=== PATIENT | female | born 1950 | race Caucasian/White ===

== ENCOUNTER → 2023-07-01 02:51 | Outpatient (CLI) | payer MEDICARE, SELFPAY ==
--- NOTE | 2023-07-01 | DI.RAD_ITS ---
Exam(s) XR KNEE RT 3V AP,LAT,JUAN JOSE EXAM: XR KNEE RT 3V AP,LAT,JUAN JOSE CLINICAL HISTORY: RT KNEE PAIN, M25.561. TECHNIQUE: 2D digital imaging was performed of the right knee. Three views obtained. AP, lateral an d PA tunnel views were obtained. COMPARISON: No exams were available for comparison FINDINGS: BONES: No acute fracture is present. No bony destructive lesion is seen. JOINTS: There is marked narrowing of the lateral femoral tibial joint. There are small osteophytes a t the posterior patella. No joint effusion is seen. SOFT TISSUE: Vascular calcification is present. IMPRESSION: 1. Marked arthrosis of the right knee particularly in the lateral femoral tibial joint. 2. Atherosclerotic calcification is present. DATA REPOSITORY: RADIATION DOSE DELIVERED:
== END ==
PROVIDERS: Visit Provider Family Medicine
DX: M25.561 Pain in right knee (principal); M17.11 Unilateral primary osteoarthritis, right knee
CPT/HCPCS: 73562

== ENCOUNTER 2023-07-04 15:03 | Emergency (ER) | payer MEDICARE, SELFPAY ==
[2023-07-04] VITALS (25 sets, daily range): BP systolic 113–174; BP diastolic 61–98; PULSE 80–96; RESP 14–32; TEMP 36.7; O2SAT 95–99
[2023-07-04 15:37] LABS: Abs Immature Grans 0.03 10^3/uL (0.0-0.06); Absolute Basophil Count 0.04 10^3/uL (0.0-0.2); Absolute Lymphocyte Count 1.16 10^3/uL (1.2-3.4); Absolute Monocyte Count 1.04 10^3/uL (0.1-0.8); Absolute Neutrophil Count 6.33 10^3/uL (1.2-6.7); Basophils % 0.5; Eosinophils % 1.1; HGB 11.5 g/dL (11.2-15.7); Immature Grans % 0.3; Lymphocytes % 13.3; MCHC 32.9 % (32.0-36.0); MCV 98 fL (80-95); MPV 11.4 fL (8.0-11.0); Neutrophils % 72.8; Platelet Count 224 10^3/uL (130-400); RBC 3.59 10^6/uL (3.93-5.22); RDW 12.1 % (11.7-14.6); RDW-SD 43.5 fL
--- NOTE | 2023-07-04 15:45 | DI.CT_ITS ---
Exam(s) CT ABDOMEN PELVIS W EXAM: CT ABDOMEN PELVIS W CLINICAL HISTORY: constipation, back pain. TECHNIQUE: Imaging Protocol: Axial computed tomography images with coronal and sagittal reformatted images were created and reviewed CONTRAST MATERIAL: Intravenous: Omnipaque-350 100cc Oral: Yes. Oral contrast was also administered for bowel opacification. COMPARISON: No exams were available for comparison FINDINGS: VISUALIZED LUNG BASES: No infiltrates nor nodules. Tiny bilateral pleural effusions are evident.. ABDOMEN: Large retrocardiac hiatal hernia noted. Esophagus is not included in the field of view and difficult to determine if it is dilated. However, LIVER: There are no focal hepatic lesions evident. No dilated intrahepatic ducts. GALLBLADDER/BILIARY: No obvious gallbladder pathology. CBD diameter is upper normal. PANCREAS: No evidence of pancreatic mass nor dilatation of the pancreatic duct. SPLEEN: Spleen is not enlarged. No obvious intrasplenic lesions. Splenic and portal veins are paten t. ADRENALS: There are no significant adrenal masses. KIDNEYS:Right kidney unremarkable. There are multiple cysts in the left kidney. One of these is ivana te large and measures 9 by 6 by 10 cm. There are no solid renal masses nor calculi. No hydronephros is.. ABDOMINAL AORTA: Abdominal aorta is not enlarged. LYMPH NODES:There is no retroperitoneal nor paraaortic adenopathy. ABDOMINAL WALL: No evidence of significant anterior abdominal wall nor inguinal hernia. GI: There is no evidence of bowel obstruction, free air, nor abscess. The cecum is low-lying, sittin g on top the urinary bladder. The appendix cannot be identified but there is no evidence of obvious acute appendicitis. PELVIS: GI: No evidence of appendicitis.There is sigmoid diverticulosis. No obvious acute diverticulitis. LYMPH NODES: There is no intrapelvic nor inguinal adenopathy. REPRODUCTIVE: Uterus and adnexal regions unremarkable. No free fluid. URINARY BLADDER: No calculi nor obvious masses evident OSSEOUS: There is a compression fracture of T12 which has acute appearance. There is mild posterior bulging of the cortex of the T12 vertebral body but there does not appear to be acute compromise of t he canal at this level. There is multilevel degenerative disc disease and there is scoliosis. IMPRESSION: 1. There is an acute appearing compression fracture of T12. The posterior superior cortex exhibits m ild posterior bulging but there is no high-grade spinal canal stenosis at this level. 2. Multiple benign cysts in the left kidney. The largest of these is quite large, measuring 10 x 9 x 6 cm. No solid renal lesions, calculi, or hydronephrosis. 3. Sigmoid diverticulosis without evidence of acute diverticulitis. 4. Large hiatal hernia. Report called by myself to ER provider 07/04/2023 6:35 p.m. RADIATION DOSE DELIVERED: Total DLP DATA REPOSITORY: All CT scans at this facility are submitted to the National Radiology Data Registry (NRDR) Dose Index Registry (DIR) with the [employer] ([employer]). RADIATION OPTIMIZATION: All CT scans at this facility use at least one of these dose optimization te chniques: automated exposure control; mA and/or kV adjustment per patient size (includes targeted exa ms where dose is matched to clinical indication); or iterative reconstruction.
[2023-07-04 15:51] LABS: ALT 28 U/L (14-59); AST 27 U/L (15-37); Albumin 3.3 g/dL (3.4-5.0); Alkaline Phosphatase 162 U/L (46-116); Anion Gap 8.6 mmol/L (3-11); BUN 31 mg/dL (7-18); Bilirubin, Total 0.4 mg/dL (0.2-1.0); CO2 28.4 mmol/L (21.0-32.0); CREATININE 0.9 mg/dL (0.55-1.02); Calcium 9.1 mg/dL (8.5-10.1); Chloride 103 mmol/L (98-107); Estimated GFR 66.67 (mL/min/1.73m2); Glucose 132 mg/dL (74-106); Lipase 37 U/L (16-77); Magnesium 2.1 mg/dL (1.8-2.4); Potassium 4.2 mmol/L (3.5-5.1); Sodium 140 mmol/L (136-145); Total Protein 7.1 g/dL (6.4-8.2)
--- NOTE | 2023-07-04 15:58 | DI.CT_ITS ---
Exam(s) CT LUMBAR SPINE RECONS EXAM: CT LUMBAR SPINE RECONS CLINICAL HISTORY: Back pain, Lspine. TECHNIQUE: Imaging Protocol: Axial computed tomography images with coronal and sagittal reformatted images were created and reviewed COMPARISON: CT CT ABDOMEN PELVIS W from 07/04/2023 FINDINGS: There is an acute appearing T12 compression fracture predominantly at superior endplate but also invo lving the anterior inferior aspect of the vertebral body. The posterior superior cortex is bulging p osteriorly 4 millimeters but there is no high-grade spinal canal stenosis at this level. Otherwise there is multilevel chronic degenerative disc disease in the lumbosacral spine. Also mild retrolisthesis L3 upon L4 related to degenerative changes. There is a mild scoliosis. No evidence o f insufficiency fracture in the sacrum and the SI joints appear unremarkable. IMPRESSION: 1. T12 compression fracture. 4 mm posterior bulging of the posterior superior cortex of T12. There does not appear to be high-grade spinal canal stenosis at this level. Called by myself to ER provider. RADIATION DOSE DELIVERED: Total DLP DATA REPOSITORY: All CT scans at this facility are submitted to the National Radiology Data Registry (NRDR) Dose Index Registry (DIR) with the [employer] (ACR). RADIATION OPTIMIZATION: All CT scans at this facility use at least one of these dose optimization te chniques: automated exposure control; mA and/or kV adjustment per patient size (includes targeted exa ms where dose is matched to clinical indication); or iterative reconstruction.
[2023-07-04] MEDS: Breeza Beverage 473 ML BTL PO ×2 (16:09→16:10)
[2023-07-04] MEDS: Omnipaque 350 MG/ML 50 ML BTL PO (16:10)
[2023-07-04 16:19] LABS: Bilirubin Negative (Negative); Blood Negative (Negative); Clarity Clear (Clear); Glucose Negative (Negative); Ketones Negative (Negative); Leukocyte Esterase Negative (Negative); Nitrite Negative (Negative); Urobilinogen 0.2 mg/dL (Up to 0.2)
--- NOTE | 2023-07-04 17:43 | W.ED.GENAD ---
Discharge Plan Disposition Patient Disposition: Home Discharge Details Clinical Impression: Compression fracture of T12 vertebra Primary Care Provider: Carolina Nelson ED Provider: Angelo Chin Home Meds and New Rx's Prescriptions: New lidocaine 5 % adhesive patch,medicated 1 patch TP DAILY PRN (Reason: pain) Qty: 15 0RF Rx Instructions: leave on most painful area for 12 hrs Continued atorvastatin 40 mg tablet 40 mg PO DAILY bisoprolol fumarate 5 mg tablet 5 mg PO DAILY donepezil 5 mg tablet 5 mg PO DAILY gabapentin 100 mg capsule 100 mg PO DAILY latanoprost 0.005 % drops 1 drp ophthalmic (eye) DAILY memantine 5 mg tablet 5 mg PO QAM omeprazole 10 mg capsule,delayed release(DR/EC) 10 mg PO DAILY timolol 0.25 % drops 1 drp ophthalmic (eye) BID Discharge Instructions Instructions: Vertebral Compression Fracture (ED) Additional Instructions: Please continue to take MiraLAX and make sure that you are eating a appropriate diet I do feel this will help with your constipation that is not emergent. It was noted on CT imaging that you have a compression fracture of T12. Please continue to use [id number] medication as needed for discomfort along with pain patches. Please do not take any more than 3000 mg of acetaminophen/Tylenol. And if you choose to use ibuprofen/Motrin no more than 600 mg every 6 hours. Please return immediately to the emergency department for any new or significant worsening of symptoms otherwise follow-up with your primary care provider for reassessment. Please use the walker to help with remaining stable for ambulation. Referrals: Carolina Nelson [Primary Care Provider] - 3 days Discharge Data Discharge Date/Time-TO BE ENTERED AT DEPARTURE: 07/04/23 20:39 HPI General Mode of arrival: wheelchair. Date/Time Provider Initiated Documentation: 07/04/23 15:08. Limitations to Documentation: no limitations. Information obtained by: patient and RN notes reviewed. History of Present Illness 73 year old F presents to the emergency department with the chief complaint of Abdominal pain, back pain, described as moderate, Patient started experiencing this day(s) (4) and it has been constant. Rest improves symptom(s), Movement worsens symptoms . Patient notes no other symptoms.. Patient did receive the following treatments prior to arrival, other (MiraLAX, acetaminophen) Related Data Home Medications Medication Instructions Recorded Confirmed atorvastatin 40 mg tablet 40 mg PO DAILY 06/30/23 07/04/23 bisoprolol fumarate 5 mg tablet 5 mg PO DAILY 06/30/23 07/04/23 donepezil 5 mg tablet 5 mg PO DAILY 06/30/23 07/04/23 gabapentin 100 mg capsule 100 mg PO DAILY 06/30/23 07/04/23 latanoprost 0.005 % eye drops 1 drp ophthalmic (eye) DAILY 06/30/23 07/04/23 memantine 5 mg tablet 5 mg PO QAM 06/30/23 07/04/23 omeprazole 10 mg capsule,delayed 10 mg PO DAILY 06/30/23 07/04/23 release timolol 0.25 % eye drops 1 drp ophthalmic (eye) BID 06/30/23 07/04/23 lidocaine 5 % topical patch 1 patch topical DAILY PRN pain #15 07/04/23 ea Previous Rx's Medication Instructions Recorded lidocaine 5 % topical patch 1 patch topical DAILY PRN pain #15 07/04/23 ea Allergies Allergy/AdvReac Type Severity Reaction Status Date / Time animal dander Allergy Unknown Other (See Verified 07/04/23 15:11 Comment) General Stated Complaint: Abd Prob MEGHANA: 3 Review of Systems Constitutional Constitutional: Denies chills, Denies fever(s), Denies headache(s) and Denies weakness ENT Ears, Nose, Mouth, and Throat: Denies headache(s) Cardiovascular Cardiovascular: Denies chest pain, Denies syncope and Denies dyspnea Respiratory Respiratory: Denies dyspnea Gastrointestinal Gastrointestinal: Denies abdominal pain, Denies melena, Denies hematochezia, Reports constipation, Denies diarrhea, Denies nausea and Denies vomiting Genitourinary Genitourinary: Denies dysuria, Denies pelvic pain and Denies flank pain Musculoskeletal Musculoskeletal: Reports back pain, Denies numbness, Reports stiffness and Denies tingling Neurologic Neurologic: Denies syncope, Denies headache(s), Denies numbness, Denies tingling, Denies paresthesias and Denies weakness Exam Const General: cooperative Orientation: alert, awake and oriented x3 Resp Effort & Inspection: normal respiratory effort and able to speak in complete sentences Auscultation: clear to auscultation bilaterally Cardio Rate: regular rate Rhythm: regular rhythm Heart Sounds: S1 normal and S2 normal GI Palpation: soft, no hepatosplenomegaly, not firm, no guarding, no masses, no pulsatile masses, not rigid, no splenomegaly and nontender Auscultation: hypoactive bowel sounds Back/Spine/Pelvis Back: no CVA tenderness Thoracic/Lumbar Spine: pain with thoraco-lumbar ROM, paraspinal tenderness, thoraco-lumbar ROM limited, thoracic spinal tenderness and lumbar spinal tenderness Neuro General: patient alert, patient awake, patient oriented x3, gait normal and moves all extremities Course Vital Signs Vital signs: Vital Signs Temperature 36.7 C 07/04/23 15:09 Pulse 85 07/04/23 15:09 Respiratory Rate 18 07/04/23 15:09 Blood Pressure 138/61 07/04/23 15:09 Pulse Oximetry 99 07/04/23 15:09 Temperature 36.7 C 07/04/23 15:36 Temperature Source Skin 07/04/23 15:36 Pulse 85 07/04/23 15:36 Respiratory Rate 18 07/04/23 15:36 Respiratory Effort Normal 07/04/23 15:18 Blood Pressure 138/61 07/04/23 15:36 Blood Pressure Position Sitting 07/04/23 15:36 Pulse Oximetry 99 07/04/23 15:36 Oxygen Delivery Method Room Air 07/04/23 15:36 Oxygen Flow Rate 0 07/04/23 15:36 Pain Level 10 07/04/23 15:36 Lab/Test Results Lab/Test Results: Laboratory Tests Range/Units 07/04/23 07/04/23 15:28 16:09 WBC (4.4-10.8) 10^3/uL 8.70 RBC (3.93-5.22) 10^6/uL 3.59 L Hgb (11.2-15.7) g/dL 11.5 Hct (36.0-46.0) % 35.0 L MCV (80-95) fL 98 H MCH (27.0-33.0) pg 32.0 MCHC (32.0-36.0) % 32.9 RDW (11.7-14.6) % 12.1 Plt Count (130-400) 10^3/uL 224 MPV (8.0-11.0) fL 11.4 H Immature Gran % 0.3 Neutrophils % 72.8 Lymphocytes % 13.3 Monocytes % 12.0 Eosinophils % 1.1 Basophils % 0.5 Nucleated RBC % (0.0-0.3) % 0.0 Absolute Neutrophils (1.2-6.7) 10^3/uL 6.33 Absolute Lymphocytes (1.2-3.4) 10^3/uL 1.16 L Absolute Monocytes (0.1-0.8) 10^3/uL 1.04 H Absolute Eosinophils (0.0-0.7) 10^3/uL 0.10 Absolute Basophils (0.0-0.2) 10^3/uL 0.04 Sodium (136-145) mmol/L 140 Potassium (3.5-5.1) mmol/L 4.2 Chloride (98-107) mmol/L 103 Carbon Dioxide (21.0-32.0) mmol/L 28.4 Anion Gap (3-11) mmol/L 8.6 BUN (7-18) mg/dL 31 H Creatinine (0.55-1.02) mg/dL 0.9 Est GFR (CKD-EPI 2020) (mL/min/1.73m2) 66.67 Glucose (74-106) mg/dL 132 H Calcium (8.5-10.1) mg/dL 9.1 Magnesium (1.8-2.4) mg/dL 2.1 Total Bilirubin (0.2-1.0) mg/dL 0.4 AST (15-37) U/L 27 ALT (14-59) U/L 28 Alkaline Phosphatase (46-116) U/L 162 H Total Protein (6.4-8.2) g/dL 7.1 Albumin (3.4-5.0) g/dL 3.3 L Lipase (16-77) U/L 37 Urine Color (Yellow) Yellow Urine Clarity (Clear) Clear Urine pH (5-8) 6.0 Ur Specific [place] (1.005-1.025) 1.020 Urine Protein (Neg-Trace) mg/dL Negative Urine Ketones (Negative) mg/dL Negative Urine Blood (Negative) Negative Urine Nitrite (Negative) Negative Urine Bilirubin (Negative) Negative Urine Urobilinogen (Up to 0.2) mg/dL 0.2 Ur Leukocyte Esterase (Negative) Negative Urine Glucose (Negative) mg/dL Negative Medical Decision Making Patient presenting to the emergency department for chief complaint of back pain and constipation. Patient states she has not had a bowel movement for the past couple days and has been taking MiraLAX but also does admit that she has not been eating much and had much diet due to significant back pain with movement. Patient has been told that she has severe degenerative and disc disease and osteoporosis but she states it has been acutely worse over the last 24 to 48 hours. Patient denies any injury or trauma, abdominal pain, numbness tingling, weakness, urinary symptoms. Physical exam shows hypoactive bowel sounds otherwise benign abdominal exam, normal cardiac and respiratory exam, acute tenderness to palpation over the lower T-spine and upper L-spine otherwise no other remarkable findings noted on exam. Given patient's age and symptoms will perform labs and CT imaging. Patient did have acetaminophen prior to arrival. Based on physical exam I do feel that patient symptoms are not consistent with ABDOMINAL AORTIC ANEURYSM, CAUDA EQUINA SYNDROME, EPIDURAL MASS LESION, OR HERNIATED DISK CAUSING SEVERE STENOSIS,. Will continue to monitor. Reviewed patient's labs and CBC is nondiagnostic with no significant leukocytosis, CMP also nonworrisome, normal lipase, urinalysis is negative for any acute findings. CT imaging reviewed and shows no acute intra-abdominal pathology but there is noted an acute T12 compression fracture with slight disc protrusion posteriorly but no central canal stenosis visible on scan. Reassessed patient and still having some discomfort, I am concerned about use of narcotics due to patient's age, history of cognitive decline, and normal use of a cane. I do feel in this case that NSAIDs outweigh risk so we will give patient small dose of ketorolac and lidocaine patch and reassess. After reassessment patient did state improvement of discomfort, was able to get up and easily ambulate through the department using a walker. Encourage patient and family to continue to use MiraLAX for bowel movements but given no obvious significant stool burden and low diet I do not think this is emergent at this time. Will have patient follow-up with primary care provider in regards to compression fracture otherwise to continue use of [id number] acetaminophen ibuprofen and will prescribe lidocaine patches. After discussion of diagnosis and plan of care patient has no further needs, questions, or concerns and states clear understanding to return to the emergency department for any worsening symptoms. This documentation was generated using [employer] system, please disregard any oddities of phrase or misspellings. Imaging Data Radiologic Study: Imaging: CT Scan Radiologist's impression: Exam(s) PROCEDURE INFORMATION: Exam: CT Abdomen And Pelvis With Contrast Exam date and time: 07/04/2023 5:43 PM Age: 73 years old Clinical indication: Other: Constipation, back pain TECHNIQUE: Imaging protocol: Computed tomography of the abdomen and pelvis with contrast. Contrast material: OMNIPAQUE 350; Contrast volume: 67 ml; Contrast route: INTRAVENOUS (IV); COMPARISON: CT LUMBAR SPINE RECONS 09/01/2023 17:43 FINDINGS: Pleural spaces: Trace bilateral pleural effusions. Heart: Large retrocardiac gastric hernia. Coronary arteries: Calcified coronary arteries. Liver: Punctate calcification in the right hepatic lobe. Gallbladder and bile ducts: Distended gallbladder. Dilated common bile duct measures 1.2 cm. Pancreas: Normal. No ductal dilation. Spleen: Normal. No splenomegaly. Adrenal glands: Normal. No mass. Kidneys and ureters: The right kidney is unremarkable. Simple left renal cysts. The largest left renal cyst measures 10 x 11 cm. Stomach and bowel: Oral contrast seen in the distal small bowel and throughout the colon. Moderate solid stool volume. Diverticulosis without CT evidence of diverticulitis. Appendix: No evidence of appendicitis. Intraperitoneal space: Unremarkable. No free air. No significant fluid collection. Vasculature: Atherosclerotic disease. Lymph nodes: Unremarkable. No enlarged lymph nodes. Urinary bladder: Unremarkable as visualized. Reproductive: Retroverted uterus. Bones/joints: Multilevel degenerative scoliotic changes of the spine. Decreased bone mineralization. Old right posterior rib fracture. Compression deformity of T12 vertebral body which appears acute. Disc space narrowing and degenerative changes of the endplates with slight retrolisthesis at L1-L2, L2-L3, and L3-L4. Disc space narrowing and degenerative changes at L4-L5. Multilevel facet arthropathy. Decreased bone mineralization. Soft tissues: Unremarkable. IMPRESSION: 1. Acute T12 compression deformity. Advanced multilevel degenerative scoliotic changes of the spine. 2. Distended gallbladder with dilated common bile duct. 3. Trace bilateral pleural effusions. 4. Large simple left renal cysts. 5. Multiple additional findings as discussed above. Dictated and Authenticated by: Bri Mccray MD. Ordering:KRISTIE Stephens MD Radiologic Study #2: Imaging: CT Scan Radiologist's impression: Exam(s) PROCEDURE INFORMATION: Exam: CT Lumbar Spine Without Contrast Exam date and time: 07/04/2023 5:43 PM Age: 73 years old Clinical indication: Low back pain TECHNIQUE: Imaging protocol: Computed tomography of the lumbar spine without contrast. COMPARISON: CT ABDOMEN PELVIS W 09/01/2023 17:43 FINDINGS: Bones/joints: Multilevel degenerative scoliotic changes of the spine. Decreased bone mineralization. Compression deformity of T12 vertebral body which appears acute. Disc space narrowing and degenerative changes of the endplates with slight retrolisthesis at L1-L2, L2-L3, and L3-L4. Disc space narrowing and degenerative changes at L4-L5. Multilevel facet arthropathy. Decreased bone mineralization. Kidneys and ureters: Large left renal cysts. Vasculature: Atherosclerotic disease. Soft tissues: Unremarkable. IMPRESSION: 1. T12 acute compression deformity. 2. Advanced multilevel degenerative scoliotic changes of the spine as discussed above. 3. Additional findings as discussed above. Dictated and Authenticated by: Bri Mccray MD. Lab Data Lab results reviewed: Yes I reviewed the patient's lab results. Quality:SDOH Health Related Social Needs: No Data to Display PFSH All Active Problems Compression fracture of T12 vertebra (Acute) Bradykinesia (Acute) Neuropathy (Acute) Alzheimer's dementia (Acute) Glaucoma (Chronic) Spinal stenosis (Acute) Carotid atherosclerosis (Acute) Multinodular goiter (Acute) Aortic valve regurgitation (Acute) Mitral valve regurgitation (Chronic) Medical History Barretts esophagus Urinary incontinence Social History Smoking/Tobacco Use Status: Never Smoking risk assessment performed?: Yes Alcohol Intake: never Substance use type: does not use Housing: house Do you feel safe at home: Yes Do you feel safe in your relationship?: Yes
[2023-07-04] MEDS: Omnipaque 350 MG/ML 100 ML BTL IJ (17:48)
[2023-07-04] MEDS: Normal Saline - Diluent 50 ML VIAL IJ (17:49)
--- NOTE | 2023-07-04 18:31 | DI.VRAD_ITS ---
PROCEDURE INFORMATION: Exam: CT Abdomen And Pelvis With Contrast Exam date and time: 07/04/2023 5:43 PM Age: 73 years old Clinical indication: Other: Constipation, back pain TECHNIQUE: Imaging protocol: Computed tomography of the abdomen and pelvis with contrast. Contrast material: OMNIPAQUE 350; Contrast volume: 67 ml; Contrast route: INTRAVENOUS (IV); COMPARISON: CT LUMBAR SPINE RECONS 09/01/2023 17:43 FINDINGS: Pleural spaces: Trace bilateral pleural effusions. Heart: Large retrocardiac gastric hernia. Coronary arteries: Calcified coronary arteries. Liver: Punctate calcification in the right hepatic lobe. Gallbladder and bile ducts: Distended gallbladder. Dilated common bile duct measures 1.2 cm. Pancreas: Normal. No ductal dilation. Spleen: Normal. No splenomegaly. Adrenal glands: Normal. No mass. Kidneys and ureters: The right kidney is unremarkable. Simple left renal cysts. The largest left renal cyst measures 10 x 11 cm. Stomach and bowel: Oral contrast seen in the distal small bowel and throughout the colon. Moderate solid stool volume. Diverticulosis without CT evidence of diverticulitis. Appendix: No evidence of appendicitis. Intraperitoneal space: Unremarkable. No free air. No significant fluid collection. Vasculature: Atherosclerotic disease. Lymph nodes: Unremarkable. No enlarged lymph nodes. Urinary bladder: Unremarkable as visualized. Reproductive: Retroverted uterus. Bones/joints: Multilevel degenerative scoliotic changes of the spine. Decreased bone mineralization. Old right posterior rib fracture. Compression deformity of T12 vertebral body which appears acute. Disc space narrowing and degenerative changes of the endplates with slight retrolisthesis at L1-L2, L2-L3, and L3-L4. Disc space narrowing and degenerative changes at L4-L5. Multilevel facet arthropathy. Decreased bone mineralization. Soft tissues: Unremarkable. IMPRESSION: 1. Acute T12 compression deformity. Advanced multilevel degenerative scoliotic changes of the spine. 2. Distended gallbladder with dilated common bile duct. 3. Trace bilateral pleural effusions. 4. Large simple left renal cysts. 5. Multiple additional findings as discussed above. Dictated and Authenticated by: Bri Mccray MD. Ordering:KRISTIE Stephens MD
--- NOTE | 2023-07-04 18:37 | DI.VRAD_ITS ---
PROCEDURE INFORMATION: Exam: CT Lumbar Spine Without Contrast Exam date and time: 07/04/2023 5:43 PM Age: 73 years old Clinical indication: Low back pain TECHNIQUE: Imaging protocol: Computed tomography of the lumbar spine without contrast. COMPARISON: CT ABDOMEN PELVIS W 09/01/2023 17:43 FINDINGS: Bones/joints: Multilevel degenerative scoliotic changes of the spine. Decreased bone mineralization. Compression deformity of T12 vertebral body which appears acute. Disc space narrowing and degenerative changes of the endplates with slight retrolisthesis at L1-L2, L2-L3, and L3-L4. Disc space narrowing and degenerative changes at L4-L5. Multilevel facet arthropathy. Decreased bone mineralization. Kidneys and ureters: Large left renal cysts. Vasculature: Atherosclerotic disease. Soft tissues: Unremarkable. IMPRESSION: 1. T12 acute compression deformity. 2. Advanced multilevel degenerative scoliotic changes of the spine as discussed above. 3. Additional findings as discussed above. Dictated and Authenticated by: Bri Mccray MD. Ordering:KRISTIE Stephens MD
[2023-07-04] MEDS: Ketorolac 15 MG/ML VIAL IVP (19:00)
[2023-07-04] MEDS: Lidocaine 5% Patch 1 PATCH TP (19:45)
[2023-07-04] MEDS: Normal Saline Flush 10 ML SYR IVP (20:15)
[2023-07-04] MEDS: Lidocaine 5% Patch 2 PATCH TP (20:22)
== END 2023-07-04 20:39 | disposition home or self-care (01) ==
PROVIDERS: Registered Nurse Emergency; Emergency Provider Nurse Practitioner Family; PCP Family Medicine
DX: M54.50 Low back pain, unspecified (principal); R10.84 Generalized abdominal pain; M48.54XA Collapsed vertebra, not elsewhere classified, thoracic region, initial encounter for fracture
CPT/HCPCS: 36415; 80053; 83690; 96374; 99285; 74177; 81003; 83735; 85025; 99284; J1885; J3490; Q9967

== ENCOUNTER 2023-07-15 15:53 | Outpatient (REF) | payer MEDICARE, SELFPAY ==
[2023-07-15 21:37] LABS: Abs Immature Grans 0.04 10^3/uL (0.0-0.06); Absolute Basophil Count 0.05 10^3/uL (0.0-0.2); Absolute Eosinophil Count 0.13 10^3/uL (0.0-0.7); Absolute Lymphocyte Count 1.44 10^3/uL (1.2-3.4); Absolute Monocyte Count 0.58 10^3/uL (0.1-0.8); Absolute Neutrophil Count 6.01 10^3/uL (1.2-6.7); Basophils % 0.6; Eosinophils % 1.6; HCT 36.9 % (36.0-46.0); Immature Grans % 0.5; Lymphocytes % 17.5; MCH 31.3 pg (27.0-33.0); MCHC 32.5 % (32.0-36.0); MCV 96 fL (80-95); MPV 12.1 fL (8.0-11.0); Neutrophils % 72.8; Platelet Count 254 10^3/uL (130-400); RBC 3.83 10^6/uL (3.93-5.22); RDW 11.9 % (11.7-14.6); RDW-SD 41.9 fL; WBC 8.25 10^3/uL (4.4-10.8)
[2023-07-15 22:05] LABS: ALT 31 U/L (14-59); AST 34 U/L (15-37); Albumin 3.7 g/dL (3.4-5.0); Alkaline Phosphatase 169 U/L (46-116); Anion Gap 10.2 mmol/L (3-11); BUN 30 mg/dL (7-18); Bilirubin, Total 0.3 mg/dL (0.2-1.0); CO2 28.8 mmol/L (21.0-32.0); CREATININE 0.8 mg/dL (0.55-1.02); Calcium 9.5 mg/dL (8.5-10.1); Chloride 100 mmol/L (98-107); Estimated GFR 76.79 (mL/min/1.73m2); Glucose 89 mg/dL (74-106); Potassium 4.5 mmol/L (3.5-5.1); Sodium 139 mmol/L (136-145); TSH (W/Ref FT4) 1.22 uIU/mL (0.36-3.74); Total Protein 6.8 g/dL (6.4-8.2)
== END 2023-07-15 15:54 | disposition home or self-care (01) ==
LOC: NCHCN 15:53
PROVIDERS: PCP Family Medicine; Visit Provider Family Medicine
DX: R19.7 Diarrhea, unspecified (principal); R25.1 Tremor, unspecified
CPT/HCPCS: 80053; 84443; 85025

== ENCOUNTER 2023-07-16 11:54 | Emergency (ER) | payer MEDICARE, SELFPAY ==
[2023-07-16 12:06] VITALS: BP 150/58; PULSE 82; RESP 16; O2SAT 97
--- NOTE | 2023-07-16 13:08 | ED.GENADUL_ITS ---
Discharge Plan Disposition Patient Disposition: Home Condition: Stable Discharge Details Clinical Impression: Compression fracture of T12 vertebra, Diarrhea Primary Care Provider: Carolina Nelson ED Provider: Tanja Rivera Home Meds and New Rx's Prescriptions: Continued atorvastatin 40 mg tablet 40 mg PO DAILY bisoprolol fumarate 5 mg tablet 5 mg PO DAILY donepezil 5 mg tablet 5 mg PO DAILY gabapentin 100 mg capsule 100 mg PO DAILY latanoprost 0.005 % drops 1 drp ophthalmic (eye) DAILY memantine 5 mg tablet 5 mg PO QAM omeprazole 10 mg capsule,delayed release(DR/EC) 10 mg PO DAILY timolol 0.25 % drops 1 drp ophthalmic (eye) BID lidocaine 5 % adhesive patch,medicated 1 patch TP DAILY PRN (Reason: pain) Qty: 15 0RF Rx Instructions: leave on most painful area for 12 hrs Discharge Instructions Instructions: Acute Diarrhea (ED) Additional Instructions: Continue the Augmentin as previously prescribed. After couple of days if the diarrhea has not improved you may take an over the counter Imodium or antidiarrheal medication. Continue to drink electrolyte such as Gatorade or similar while having the diarrhea. The CT scan shows nothing new except for a worsening of the previously known co mpression fracture in T12. Please follow up regarding this with your primary care provider or a internal corrosion specialist. Follow up with primary care provider in 3-5 days. Return to ED sooner if any worsening or concerns. Please take Tylenol or Ibuprofen with food every 4-6 hours as needed for pain and swelling. Referrals: Carolina Nelson [Primary Care Provider] - 3 days Discharge Data Discharge Date/Time-TO BE ENTERED AT DEPARTURE: 07/16/23 15:50 HPI General Mode of arrival: ambulatory . Date/Time Provider Initiated Documentation: 07/16/23 12:05 . Limitations to Documentation: no limitations . Information obtained by: patient, RN notes reviewed and old records reviewed . HPI Narrative: 73 year old female with complaints of diarrhea, left upper quadrant abd pain, sent here by PCP for Ct scan. She was seen here last week diagnosed with a T12 compression fracture. Past medical history includes Preston's esophagus, A lzheimer's dementia, bradykinesia, mitral valve regurgitation. Related Data Home Medications Medication Instructions Recorded Confirmed atorvastatin 40 mg tablet 40 mg PO DAILY 06/30/23 07/16/23 bisoprolol fumarate 5 mg tablet 5 mg PO DAILY 06/30/23 07/16/23 donepezil 5 mg tablet 5 mg PO DAILY 06/30/23 07/16/23 gabapentin 100 mg capsule 100 mg PO DAILY 06/30/23 07/16/23 latanoprost 0.005 % eye drops 1 drp ophthalmic (eye) DAILY 06/30/23 07/16/23 memantine 5 mg tablet 5 mg PO QAM 06/30/23 07/16/23 omeprazole 10 mg capsule,delayed 10 mg PO DAILY 06/30/23 07/16/23 release timolol 0.25 % eye drops 1 drp ophthalmic (eye) BID 06/30/23 07/16/23 lidocaine 5 % topical patch 1 patch topical DAILY PRN pain #15 07/04/23 07/16/23 ea Previous Rx's Medication Instructions Recorded lidocaine 5 % topical patch 1 patch topical DAILY PRN pain #15 07/04/23 ea Allergies Allergy/AdvReac Type Severity Reaction Status Date / Time animal dander Allergy Unknown Other (See Verified 07/16/23 12:32 Comment) General Stated Complaint: Nausea/Vomit/Diar MEGHANA: 3 Review of Systems All systems reviewed & are unremarkable except as noted in HPI and below Gastrointestinal Gastrointestinal: Reports abdominal pain, Reports diarrhea, Reports loose stools, Reports nausea and Denies vomiting Exam Narrative Exam Narrative: Constitutional: Alert and oriented x3. Hard to understand, mild amount of dysphasia, Appears stated age. Thin body habitus. Head: Normocephalic, no trauma. Eyes: Pupils PERRL, Red reflex noted, EOM's intact. Eyelids symmetrical without lesions, discharge, or swelling. Chest: RRR, Normal S1, S2, distal pulses intact. Resp: Lungs clear to auscultation bilaterally, no wheezes, rales, or rhonchi. Abdomen: Soft, non-distended, Musculoskeletal: unable to assess gait, Skin: No suspicious rashes or lesions. Capillary refill less than 2 sec. Neurologic: Cranial nerves II-XII intact. Alert and oriented x 3. Motor: No deficits noted. Sensory: Intact bilaterally all 4 extremities. Hematologic/Lymphatic: No ecchymosis, no lymphadenopathy. Course Vital Signs Vital signs: Vital Signs Pulse 82 07/16/23 12:06 Respiratory Rate 16 07/16/23 12:06 Blood Pressure 150/58 H 07/16/23 12:06 Pulse Oximetry 97 07/16/23 12:06 Temperature Source Oral 07/16/23 12:06 Pulse 82 07/16/23 12:06 Respiratory Rate 16 07/16/23 12:06 Respiratory Effort Normal 07/16/23 12:30 Blood Pressure 150/58 H 07/16/23 12:06 Pulse Oximetry 97 07/16/23 12:06 Oxygen Delivery Method Room Air 07/16/23 12:06 Oxygen Flow Rate 0 07/16/23 12:06 Pain Level 4 07/16/23 12:06 Medical Decision Making 73 year old female with complaints of diarrhea, left upper quadrant abd pain, sent here by PCP for Ct scan. She was seen here last week diagnosed with a T12 compression fracture. Past medical history includes Preston's esophagus, Alzheimer's dementia, bradykinesia, mitral valve regurgitation. Workup ordered including CBC CMP lipase, stool studies including lactoferrin, C. difficile and urinalysis. CT abdomen pelvis. CBC shows no leukocytosis, absolute neutrophils 6.72, electrolytes largely within normal limits GFR 76 BUN slightly elevated at 32, alk phos 167, trace blood in the urinalysis. Stool shows lactoferrin positive. CT abdomen pelvis shows new worsening T12 fracture which has progressed up to 50% and L1-L2 transverse fractures nondisplaced. Will continue the Augmentin which was previously prescribed and referred to PCP. No signs of cauda equina at this time. Given Tramadol and lidocaine patch here in dept prior to discharge. This text was generated using [employer] dictation system, please disregard any oddities of phrase or misspellings. Medical Records Medical records reviewed: Yes I reviewed the patient's medical records. Imaging Data Radiologic Study: Imaging: CT Scan Radiologist's impression: FINDINGS: The examination is limited due to patient motion artifact. ABDOMEN: Lung Bases: Cardiomegaly. Large hiatal hernia. There are small bilateral pleural effusions. Liver: Normal density. No measurable mass. Portal, Superior Mesenteric, and Splenic Veins: Unremarkable. Gallbladder and Biliary Tract: No radiodense calculus or dilation. Pancreas: Normal density, no abnormal calcifications or inflammatory process. Spleen: Normal. Adrenals: No masses seen. Kidneys: Normal size, contour and axis. No radiodense stones or obstructive uropathy. Simple left renal cysts. No follow-up is recommended. Abdominal Aorta: Abdominal portion non-dilated. Atherosclerotic calcification is present. Bowel: No obstruction or bowel wall thickening. No evidence of appendicitis. There is diverticulosis of the colon but no evidence of acute diverticulitis. There is a moderate amount of stool in the colon. There is oral contrast still within the colon from the patient's prior CT scan. Peritoneal Cavity: No ascites, collection or mesenteric inflammatory response. No free air. Lymph Nodes: Within normal limits. Bones: Within normal limits for the patient's age. Since the prior examination the patient is now has fractures involving the left L1 and L2 transverse processes. Also, since the prior examination there has been progression of the T12 compression fracture deformity which is now loss approximately 50 percent of the height of the vertebral body. There is also mild progression of the retropulsion into the spinal canal with narrowing of the AP diameter of the spinal canal to 1.0 cm. There is also now compression of the superior endplate of L5 with mild loss of the height of the vertebral body anteriorly. The bones are osteopenic. Soft Tissues: Unremarkable. PELVIS: Bladder: Symmetric distention, no gross wall thickening. Reproductive Organs: Unremarkable as visualized. Lymph Nodes: Within normal limits. Bones: Within normal limits for the patient's age. IMPRESSION: 1. New since 07/04/2023: Nondisplaced fractures involving the left L1 and L2 transverse processes. There is also now mild compression fracture of the superior endplate of L5. 2. Worsening T12 compression fracture now with loss of approximately 50 percent of the height of the vertebral body. There has also been worsening retropulsion into the central spinal canal with an AP diameter down to 1.0 cm. 3. Small bilateral pleural effusions. Quality:SDOH Health Related Social Needs: No Data to Display PFSH All Active Problems (Updated 07/16/23 @ 15:29 by Tanja Rivera NP) Diarrhea (Acute) Compression fracture of T12 vertebra (Acute) Bradykinesia (Acute) Neuropathy (Acute) Alzheimer's dementia (Acute) Glaucoma (Chronic) Spinal stenosis (Acute) Carotid atherosclerosis (Acute) Multinodular goiter (Acute) Aortic valve regurgitation (Acute) Mitral valve regurgitation (Chronic) Medical History Barretts esophagus Urinary incontinence Social History Smoking/Tobacco Use Status: Never Smoking risk assessment performed?: Yes Alcohol Intake: never Substance use type: does not use Housing: house Do you feel safe at home: Yes Do you feel safe in your relationship?: Yes
[2023-07-16 13:22] LABS: Abs Immature Grans 0.04 10^3/uL (0.0-0.06); Absolute Basophil Count 0.04 10^3/uL (0.0-0.2); Absolute Eosinophil Count 0.14 10^3/uL (0.0-0.7); Absolute Lymphocyte Count 1.75 10^3/uL (1.2-3.4); Absolute Monocyte Count 0.71 10^3/uL (0.1-0.8); Absolute Neutrophil Count 6.72 10^3/uL (1.2-6.7); Basophils % 0.4; Eosinophils % 1.5; HCT 37.4 % (36.0-46.0); Immature Grans % 0.4; Lymphocytes % 18.6; MCH 30.8 pg (27.0-33.0); MCHC 32.1 % (32.0-36.0); MCV 96 fL (80-95); MPV 11.3 fL (8.0-11.0); Monocytes % 7.6; Neutrophils % 71.5; Platelet Count 219 10^3/uL (130-400); RBC 3.89 10^6/uL (3.93-5.22); RDW-SD 42.1 fL
[2023-07-16 13:33] LABS: ALT 31 U/L (14-59); AST 34 U/L (15-37); Albumin 3.5 g/dL (3.4-5.0); Alkaline Phosphatase 167 U/L (46-116); Anion Gap 8.2 mmol/L (3-11); BUN 32 mg/dL (7-18); Bilirubin, Total 0.3 mg/dL (0.2-1.0); CO2 28.8 mmol/L (21.0-32.0); CREATININE 0.8 mg/dL (0.55-1.02); Calcium 9.4 mg/dL (8.5-10.1); Chloride 100 mmol/L (98-107); Estimated GFR 76.79 (mL/min/1.73m2); Glucose 97 mg/dL (74-106); Lipase 38 U/L (16-77); Magnesium 2.1 mg/dL (1.8-2.4); Potassium 4.4 mmol/L (3.5-5.1); Sodium 137 mmol/L (136-145); Total Protein 7.2 g/dL (6.4-8.2)
[2023-07-16 14:20] LABS: Bilirubin Negative (Negative); Blood Trace-lysed (Negative); Clarity Clear (Clear); Glucose Negative (Negative); Ketones Negative (Negative); Leukocyte Esterase Negative (Negative); Nitrite Negative (Negative); Specific Gravity 1.015 (1.005-1.025); Urobilinogen 0.2 mg/dL (Up to 0.2)
[2023-07-16] MEDS: Omnipaque 350 MG/ML 100 ML BTL IJ (14:23)
[2023-07-16] MEDS: Normal Saline - Diluent 50 ML VIAL IJ (14:24)
[2023-07-16 14:25] LABS: Bacteria Few HPF (Negative); C & S Indicated? No; Casts Negative LPF (Negative); Crystals Negative HPF (Negative); Epithelial Cells Few HPF (Negative); Mucus Negative (Negative); WBC 0-2 HPF (0-5)
--- NOTE | 2023-07-16 14:35 | DI.CT_ITS ---
Exam(s) CT ABDOMEN PELVIS W EXAM: CT ABDOMEN PELVIS W CLINICAL HISTORY: Abdominal pain, Diarrhea TECHNIQUE: Imaging Protocol: Axial computed tomography images with coronal and sagittal reformatted images were created and reviewed. CONTRAST MATERIAL: Intravenous: Omnipaque 350 Contrast volume:69 mL Oral: No COMPARISON: CT CT ABDOMEN PELVIS W from 07/04/[address] LUMBAR SPINE RECONS from 07/04/2023 FINDINGS: The examination is limited due to patient motion artifact. ABDOMEN: Lung Bases: Cardiomegaly. Large hiatal hernia. There are small bilateral pleural effusions. Liver: Normal density. No measurable mass. Portal, Superior Mesenteric, and Splenic Veins: Unremarkable. Gallbladder and Biliary Tract: No radiodense calculus or dilation. Pancreas: Normal density, no abnormal calcifications or inflammatory process. Spleen: Normal. Adrenals: No masses seen. Kidneys: Normal size, contour and axis. No radiodense stones or obstructive uropathy. Simple left yvonne al cysts. No follow-up is recommended. Abdominal Aorta: Abdominal portion non-dilated. Atherosclerotic calcification is present. Bowel: No obstruction or bowel wall thickening. No evidence of appendicitis. There is diverticulosis of the colon but no evidence of acute diverticulitis. There is a moderate amount of stool in the co selvin. There is oral contrast still within the colon from the patient's prior CT scan. Peritoneal Cavity: No ascites, collection or mesenteric inflammatory response. No free air. Lymph Nodes: Within normal limits. Bones: Within normal limits for the patient's age. Since the prior examination the patient is now huggins s fractures involving the left L1 and L2 transverse processes. Also, since the prior examination the re has been progression of the T12 compression fracture deformity which is now loss approximately 50 percent of the height of the vertebral body. There is also mild progression of the retropulsion into the spinal canal with narrowing of the AP diameter of the spinal canal to 1.0 cm. There is also now compression of the superior endplate of L5 with mild loss of the height of the vertebral body anteri aries. The bones are osteopenic. Soft Tissues: Unremarkable. PELVIS: Bladder: Symmetric distention, no gross wall thickening. Reproductive Organs: Unremarkable as visualized. Lymph Nodes: Within normal limits. Bones: Within normal limits for the patient's age. IMPRESSION: 1. New since 07/04/2023: Nondisplaced fractures involving the left L1 and L2 transverse processes. The re is also now mild compression fracture of the superior endplate of L5. 2. Worsening T12 compression fracture now with loss of approximately 50 percent of the height of the vertebral body. There has also been worsening retropulsion into the central spinal canal with an AP diameter down to 1.0 cm. 3. Small bilateral pleural effusions. RADIATION DOSE DELIVERED: 606.04mGy.cm Total DLP DATA REPOSITORY: All CT scans at this facility are submitted to the National Radiology Data Registry (NRDR) Dose Index Registry (DIR) with the [employer] (ACR). RADIATION OPTIMIZATION: All CT scans at this facility use at least one of these dose optimization te chniques: automated exposure control; mA and/or kV adjustment per patient size (includes targeted exa ms where dose is matched to clinical indication); or iterative reconstruction.
[2023-07-16] MEDS: Lidocaine 5% Patch 1 PATCH TP (15:54)
[2023-07-16] MEDS: traMADol 50 MG TAB PO (15:54)
[2023-07-16 15:55] LABS: C Diff PCR Negative (Negative)
== END 2023-07-16 15:50 | disposition home or self-care (01) ==
PROVIDERS: Emergency Provider Registered Nurse Emergency; PCP Family Medicine
DX: R19.7 Diarrhea, unspecified (principal); M48.54XD Collapsed vertebra, not elsewhere classified, thoracic region, subsequent encounter for fracture with routine healing; G30.9 Alzheimer's disease, unspecified; F02.80 Dementia in other diseases classified elsewhere, unspecified severity, without behavioral disturbance, psychotic disturbance, mood disturbance, and anxiety; Z79.899 Other long term (current) drug therapy
CPT/HCPCS: 80053; 83690; 87329; 87493; 87505; 99285; 74177; 81003; 81015; 83630; 83735; 85025; 87177; 99284; J3490

== ENCOUNTER 2023-07-23 17:25 | Outpatient (REF) | payer MEDICARE, SELFPAY ==
[2023-07-23 21:35] LABS: Vitamin D 25 Total 52.6 ng/mL (30-100)
== END 2023-07-23 17:26 | disposition home or self-care (01) ==
LOC: NCHCN 17:25
PROVIDERS: PCP Family Medicine; Visit Provider Family Medicine
DX: M81.0 Age-related osteoporosis without current pathological fracture (principal)
CPT/HCPCS: 82306

== ENCOUNTER 2023-08-07 16:11 | Outpatient (REF) | payer MEDICARE, SELFPAY ==
[2023-08-07 16:10] LABS: ESR 20 mm/hr (0-30)
[2023-08-07 16:39] LABS: C-Reactive Protein < 0.50 mg/dL (<or=0.5)
[2023-08-07 17:02] LABS: C Diff PCR Negative (Negative)
[2023-08-13 18:37] LABS: Calprotectin 117 mcg/g
== END 2023-08-07 16:12 | disposition home or self-care (01) ==
LOC: NCHCN 16:11
PROVIDERS: PCP Family Medicine; Visit Provider Family Medicine
DX: R19.7 Diarrhea, unspecified (principal)
CPT/HCPCS: 85652; 87329; 87493; 87505; 82272; 83630; 83993; 86140; 87177

== ENCOUNTER 2023-08-14 13:11 | Outpatient (REF) | payer MEDICARE, SELFPAY ==
[2023-08-15 11:14] LABS: Campylobacter PCR Negative (Negative); Salmonella PCR Negative (Negative); Shiga Toxin PCR Negative (Negative); Shigella/Enteroinvasive Ecoli Negative (Negative)
== END 2023-08-14 13:12 | disposition home or self-care (01) ==
LOC: NCHCN 13:11
PROVIDERS: PCP Family Medicine; Visit Provider Family Medicine
DX: R19.7 Diarrhea, unspecified (principal)
CPT/HCPCS: 87505; 87177

== ENCOUNTER → 2023-08-20 04:00 | Outpatient (CLI) | payer MEDICARE, SELFPAY ==
--- NOTE | 2023-08-20 | DI.DEXA_ITS ---
Exam(s) XR DEXA BONE DENSITY W/WO NETO EXAM: XR DEXA BONE DENSITY W/WO NETO CLINICAL HISTORY: M81.0 Age related osteoporosis w/o current pathological FR TECHNIQUE: COMPARISON: CT CT ABDOMEN PELVIS W from 07/16/2023 FINDINGS: Lateral Spine Image: The node compression fractures at T12 and L5 are not well visualized on the scan ogram. Left hip: Was unable to perform the left hip evaluation due to patient pain. Left forearm: Total T-Score: -0.3 Total Z-Score: 2.2 T- and Z-scores: Within normal limits. IMPRESSION: Limited examination as the patient was unable to tolerate the examination. No evidence of osteoporos is in the left forearm.
== END ==
PROVIDERS: PCP Family Medicine; Visit Provider Family Medicine
DX: M81.0 Age-related osteoporosis without current pathological fracture (principal); Z13.820 Encounter for screening for osteoporosis
CPT/HCPCS: 77080

== ENCOUNTER 2023-08-24 01:25 | Emergency (ER) | payer MEDICARE, SELFPAY ==
[2023-08-24] VITALS (25 sets, daily range): BP systolic 121–151; BP diastolic 55–74; PULSE 84–99; RESP 13–33; TEMP 37.2; O2SAT 96–100
[2023-08-24 02:05] LABS: Abs Immature Grans 0.04 10^3/uL (0.0-0.06); Absolute Basophil Count 0.06 10^3/uL (0.0-0.2); Absolute Eosinophil Count 0.08 10^3/uL (0.0-0.7); Absolute Lymphocyte Count 1.42 10^3/uL (1.2-3.4); Absolute Neutrophil Count 8.42 10^3/uL (1.2-6.7); Basophils % 0.6 %; Eosinophils % 0.7 %; HCT 38.5 % (36.0-46.0); HGB 12.3 g/dL (11.2-15.7); Immature Grans % 0.4 %; Lymphocytes % 13.2 %; MCH 30.4 pg (27.0-33.0); MCHC 31.9 % (32.0-36.0); MCV 95 fL (80-95); MPV 11.2 fL (8.0-11.0); Monocytes % 6.5 %; Neutrophils % 78.6 %; Platelet Count 239 10^3/uL (130-400); RBC 4.04 10^6/uL (3.93-5.22); RDW 12.2 % (11.7-14.6); WBC 10.72 10^3/uL (4.4-10.8)
--- NOTE | 2023-08-24 02:05 | ED.GENADUL_ITS ---
Discharge Plan Disposition Patient Disposition: Home Condition: Good Discharge Details Clinical Impression: Diarrhea Primary Care Provider: Carolina Nelson ED Provider: Louann Calderon Home Meds and New Rx's Prescriptions: Continued atorvastatin 40 mg tablet 40 mg PO DAILY bisoprolol fumarate 5 mg tablet 5 mg PO DAILY donepezil 5 mg tablet 5 mg PO DAILY latanoprost 0.005 % drops 1 drp ophthalmic (eye) DAILY memantine 5 mg tablet 5 mg PO QAM omeprazole 10 mg capsule,delayed release(DR/EC) 10 mg PO DAILY timolol 0.25 % drops 1 drp ophthalmic (eye) BID lidocaine 5 % adhesive patch,medicated 1 patch TP DAILY PRN (Reason: pain) Qty: 15 0RF Rx Instructions: leave on most painful area for 12 hrs Discharge Instructions Instructions: Acute Diarrhea (ED) Additional Instructions: Call your primary care doctor on Thursday to schedule an appointment for within the next 3 day to follow up on your visit here. Discuss medication for constipation at this time. Return to the emergency department for new or worsening symptoms including lightheadedness, abdominal pain, or if the diarrhea persists beyond this afternoon. Referrals: Carolina Nelson [Primary Care Provider] - [facility] General Mode of arrival: ambulatory . Date/Time Provider Initiated Documentation: 08/24/23 01:35 . Limitations to Documentation: no limitations . Information obtained by: patient and family . HPI Narrative: 73yo F with dementia presenting for diarrhea. History primarily from at bedside. He reports she has had copious loose stool that smells horrible over the past two hours. Give her milk of magnesium a little over two hours ago for constipation. Reports patient had a bowel movement earlier this morning but wasn't able to go from 4pm to 9pm. After she started having diarrhea he gave her immodium with no effect. Patient denies any pain. reports that she is acting at her baseline. Otherwise in her usual state of health with no fevers, chills, rash, nasuea, vomiting, abdominal pain, dysuria, or other concerns. Related Data Home Medications Medication Instructions Recorded Confirmed atorvastatin 40 mg tablet 40 mg PO DAILY 06/30/23 08/24/23 bisoprolol fumarate 5 mg tablet 5 mg PO DAILY 06/30/23 08/24/23 donepezil 5 mg tablet 5 mg PO DAILY 06/30/23 08/24/23 latanoprost 0.005 % eye drops 1 drp ophthalmic (eye) DAILY 06/30/23 07/16/23 memantine 5 mg tablet 5 mg PO QAM 06/30/23 08/24/23 omeprazole 10 mg capsule,delayed 10 mg PO DAILY 06/30/23 08/24/23 release timolol 0.25 % eye drops 1 drp ophthalmic (eye) BID 06/30/23 08/24/23 lidocaine 5 % topical patch 1 patch topical DAILY PRN pain #15 07/04/23 08/24/23 ea Previous Rx's Medication Instructions Recorded lidocaine 5 % topical patch 1 patch topical DAILY PRN pain #15 07/04/23 ea Allergies Allergy/AdvReac Type Severity Reaction Status Date / Time animal dander Allergy Unknown Other (See Verified 08/24/23 01:41 Comment) General Stated Complaint: GI Bleed MEGHANA: 3 Review of Systems Narrative: see HPI Exam Narrative Exam Narrative: General: Alert, cachesctic, in no acute distress. Head: Normocephalic, atraumatic Neck: Trachea midline, ?Neck supple. ENT: ?MMM.? Cardiac: ?RRR, no murmurs appreciated Resp: No respiratory distress. CTAB. Abd: ?Soft, non-distended, nontender : ?No suprapubic tenderness. Rectal: + external hemmorhoids, no bleeding. Good tone, no palpable mass or fissure. No gross on blood on glove. Extremities: ?No deformities.? No peripheral edema. Neurologic: GCS 15. ? Moves all extremities freely against gravity Course Vital Signs Vital signs: Vital Signs Temperature 37.2 C 08/24/23 01:36 Temperature 37.2 C 08/24/23 01:36 Respiratory Effort Normal 08/24/23 01:42 Oxygen Delivery Method Room Air 08/24/23 01:36 Oxygen Flow Rate 0 08/24/23 01:36 Pain Level 0 08/24/23 01:36 Medical Decision Making 73yo F with dementia presenting for diarrhea. History primarily from at bedside. He reports she has had copious loose stool that smells horrible over the past two hours. Last normal BM this morning, was 'constipated' starting at 4pm so he gave her milk of mag after which she began to have diarrhea. Subsequently gave her immodium which did not help. Otherwise in her usual state of health with no fevers or abdominal pain. Vital signs reassuring on arrival. No abdominal tenderness on exam. Rectal exam with no gross blood and heme- occult negative. Likely diarrhea 2/t MoM. Will give small 500cc IVFB and send basic labs. With extremely benign abdominal exam, no abdominal pain, and 2 hours of diarrhea after receiving milk of magnesia, will not get CT scan. Labs reviewed as below, CBC with no leukocytosis or anemia, CMP with no significant electrolyte abnormalities, coags normal. Observed in the ED for 2 hours with no further bowel movements. On reassessment her abdomen remains non-tender and her vital signs reassuring. Advised discussing a bowel regimen with her PCP. Discharged home; discharge instructions and return precautions were reviewed with patient and spouse who verbalized understanding. All questions were answered and they are in full agreeement with the plan. Lab Data Lab results reviewed: Yes I reviewed the patient's lab results. Labs: Laboratory Tests Range/Units 08/24/23 02:00 WBC (4.4-10.8) 10^3/uL 10.72 RBC (3.93-5.22) 10^6/uL 4.04 Hgb (11.2-15.7) g/dL 12.3 Hct (36.0-46.0) % 38.5 MCV (80-95) fL 95 MCH (27.0-33.0) pg 30.4 MCHC (32.0-36.0) % 31.9 L RDW (11.7-14.6) % 12.2 Plt Count (130-400) 10^3/uL 239 MPV (8.0-11.0) fL 11.2 H Immature Gran % % 0.4 Neutrophils % % 78.6 Lymphocytes % % 13.2 Monocytes % % 6.5 Eosinophils % % 0.7 Basophils % % 0.6 Nucleated RBC % (0.0-0.3) % 0.0 Absolute Neutrophils (1.2-6.7) 10^3/uL 8.42 H Absolute Lymphocytes (1.2-3.4) 10^3/uL 1.42 Absolute Monocytes (0.1-0.8) 10^3/uL 0.70 Absolute Eosinophils (0.0-0.7) 10^3/uL 0.08 Absolute Basophils (0.0-0.2) 10^3/uL 0.06 PT (9.1-11.1) sec 10.3 INR (0.9-1.1) 1.0 APTT (23.6-32.8) sec 24.3 Sodium (136-145) mmol/L 141 Potassium (3.5-5.1) mmol/L 4.0 Chloride (98-107) mmol/L 102 Carbon Dioxide (21.0-32.0) mmol/L 31.2 Anion Gap (3-11) mmol/L 7.8 BUN (7-18) mg/dL 33 H Creatinine (0.55-1.02) mg/dL 1.0 Est GFR (CKD-EPI 2020) (mL/min/1.73m2) 58.75 Glucose (74-106) mg/dL 141 H Calcium (8.5-10.1) mg/dL 9.0 Total Bilirubin (0.2-1.0) mg/dL 0.4 AST (15-37) U/L 20 ALT (14-59) U/L 24 Alkaline Phosphatase (46-116) U/L 114 Total Protein (6.4-8.2) g/dL 7.4 Albumin (3.4-5.0) g/dL 3.7 ABO/Rh O Positive Antibody Screen NEGATIVE Quality:SDOH Health Related Social Needs: No Data to Display PFSH All Active Problems (Updated 08/24/23 @ 03:38 by Louann Calderon MD) Diarrhea (Acute) Bradykinesia (Acute) Neuropathy (Acute) Alzheimer's dementia (Acute) Glaucoma (Chronic) Spinal stenosis (Acute) Carotid atherosclerosis (Acute) Multinodular goiter (Acute) Aortic valve regurgitation (Acute) Mitral valve regurgitation (Chronic) Medical History Barretts esophagus Urinary incontinence Social History Smoking/Tobacco Use Status: Never Smoking risk assessment performed?: Yes Alcohol Intake: never Substance use type: does not use Housing: house Do you feel safe at home: Yes Do you feel safe in your relationship?: Yes
[2023-08-24 02:20] LABS: ALT 24 U/L (14-59); AST 20 U/L (15-37); Albumin 3.7 g/dL (3.4-5.0); Alkaline Phosphatase 114 U/L (46-116); Anion Gap 7.8 mmol/L (3-11); BUN 33 mg/dL (7-18); Bilirubin, Total 0.4 mg/dL (0.2-1.0); CO2 31.2 mmol/L (21.0-32.0); Chloride 102 mmol/L (98-107); Estimated GFR 58.75 (mL/min/1.73m2); Glucose 141 mg/dL (74-106); Sodium 141 mmol/L (136-145); Total Protein 7.4 g/dL (6.4-8.2)
[2023-08-24 02:23] LABS: PTT Activated 24.3 sec (23.6-32.8); Prothrombin Time 10.3 sec (9.1-11.1)
[2023-08-24] MEDS: Normal Saline 500 ML IV (02:28)
== END 2023-08-24 03:59 | disposition home or self-care (01) ==
PROVIDERS: Emergency Provider Student in an Organized Health Care Education/Training Program; PCP Family Medicine
DX: R19.7 Diarrhea, unspecified (principal); G30.9 Alzheimer's disease, unspecified; F02.80 Dementia in other diseases classified elsewhere, unspecified severity, without behavioral disturbance, psychotic disturbance, mood disturbance, and anxiety
CPT/HCPCS: 36415; 80053; 86850; 86900; 86901; 96360; 99284; 85025; 85610; 85730; 99283

== ENCOUNTER → 2023-09-21 19:36 | Outpatient (CLI) | payer MEDICARE, SELFPAY ==
--- NOTE | 2023-09-21 | DI.RAD_ITS ---
Exam(s) XR HIP RT COMPLETE AP PELVIS EXAM: XR HIP RT COMPLETE AP PELVIS CLINICAL HISTORY: PAIN RT HIP M25.551. TECHNIQUE: 2D digital imaging was performed of the right hip. Two images were obtained. AP pelvis a nd lateral right hip views were obtained. COMPARISON: No exams were available for comparison FINDINGS: BONES: No acute fracture is present. No bony destructive lesion is seen. The bones are osteopenic. JOINTS: No dislocation present. The right hip joint space is well maintained. There is mild narrowin g of the left hip joint space. On the sacroiliac joints and symphysis pubis are unremarkable. SOFT TISSUE: Vascular calcifications are present. IMPRESSION: 1. Unremarkable right hip. 2. Mild narrowing of the left hip. DATA REPOSITORY: RADIATION DOSE DELIVERED:
== END ==
PROVIDERS: PCP Family Medicine; Visit Provider Family Medicine
DX: M25.551 Pain in right hip (principal)
CPT/HCPCS: 73502

== ENCOUNTER → 2023-11-26 10:25 | Outpatient (BNVA) | payer MEDICARE, SELFPAY | PROVIDERS: PCP Family Medicine; Referring Provider Family Medicine | DX: M17.11 Unilateral primary osteoarthritis, right knee (principal); M76.31 Iliotibial band syndrome, right leg; R29.898 Other symptoms and signs involving the musculoskeletal system | CPT/HCPCS: 20610; J1010 ==

== ENCOUNTER → 2023-12-31 14:41 | Outpatient (BNVA) | payer MEDICARE, SELFPAY | PROVIDERS: PCP Family Medicine; Referring Provider Family Medicine; Visit Provider Surgery | DX: K59.00 Constipation, unspecified (principal); K62.5 Hemorrhage of anus and rectum; K64.4 Residual hemorrhoidal skin tags | CPT/HCPCS: 99214 ==

== ENCOUNTER → 2024-02-29 11:01 | Outpatient (BNVA) | payer MEDICARE, SELFPAY | PROVIDERS: PCP Family Medicine; Referring Provider Family Medicine; Visit Provider Student in an Organized Health Care Education/Training Program | DX: G20.A1 Parkinson's disease without dyskinesia, without mention of fluctuations (principal); R63.4 Abnormal weight loss; M17.11 Unilateral primary osteoarthritis, right knee; R29.898 Other symptoms and signs involving the musculoskeletal system | CPT/HCPCS: 20610; 99214; J1010 ==

== ENCOUNTER 2024-02-29 13:54 | Emergency (ER) | payer MEDICARE, SELFPAY ==
[2024-02-29] VITALS (39 sets, daily range): BP systolic 115–181; BP diastolic 55–146; PULSE 73–177; RESP 14–33; TEMP 36.3; O2SAT 90–99
--- NOTE | 2024-02-29 13:45 | RT.EKG_ITS ---
APPROVED REPORT Exam: Resting ECG Reason for Exam: chest pain Patient Location: E HR:79 bpm ECG Measurements Heart Rate 79 AXIS OK 145 P -78 QRSd 81 QRS -54 QT 377 T 60 QTc 432 Conclusion Sinus or ectopic atrial rhythm...P axis (-45,135) Left anterior fascicular block...axis(240,-40), init forces inf Consider left ventricular hypertrophy...(R aVL+S V3) >2.20mV
--- NOTE | 2024-02-29 14:15 | DI.CT_ITS ---
Exam(s) CT THORAX ABD/PEL CTA EXAM: CT THORAX ABD/PEL CTA CLINICAL HISTORY: chest and upper abdominal pain radiating to back. TECHNIQUE: Imaging Protocol: Axial CT angiography was performed with multi-slice acquisition and m ulti-planar and/or 3D reconstructions. Lung Computer Aided Detection (CAD) was utilized. CONTRAST MATERIAL: Intravenous: Omnipaque 350 contrast volume:55 mL Oral: No COMPARISON: CT CT ABDOMEN PELVIS W from 07/16/2023 FINDINGS: CHEST: Tracheobronchial tree: Patent where visualized. There is no evidence of bronchiectasis. Pulmonary parenchyma: Atelectatic changes are seen in the lung bases. There is scarring in the right lower lobe. No focal consolidating infiltrates or pulmonary nodules are seen. Pulmonary Arteries: Due to the timing of the bolus, pulmonary artery opacification is suboptimal for evaluation of pulmonary emboli. No large central pulmonary embolism is seen. Mediastinum and Eugenie: No dominant adenopathy or fluid collection. The esophagus is unremarkable.There is a large hiatal hernia with a large portion of the stomach above the diaphragm. Visualized thyroid: Unremarkable. Pleura: No effusion or pneumothorax. Heart: Cardiomegaly is present. Three vessel coronary artery calcification is present. No pericardi al effusion. Aorta: The ascending thoracic aorta measures 4.2 x 4.4 cm. There is no evidence of dissection. Athe rosclerotic calcification is present. Soft Tissues: Unremarkable. Bones: Within normal limits for the patient's age.There are old compression deformities with vertebro plasties at T7 and T12. There is a right convex thoracolumbar scoliosis. ABDOMEN AND PELVIS: Abdomen: Celiac axis/mesenteric arteries: No evidence of occlusion or significant stenosis. Renal Arteries: No evidence of occlusion or significant stenosis. Mild atherosclerotic calcification seen at the origins of the renal arteries bilaterally. Aorta: No evidence of occlusion or significant stenosis. No aneurysm or dissection. Atheroscleroti c calcification is present. Pelvis: Iliac Arteries: No evidence of occlusion or significant stenosis. Atherosclerotic calcification is present. Common Femoral Arteries: No evidence of occlusion or significant stenosis. Mild atherosclerotic delon cification is present. ABDOMEN: Liver: Normal density. No measurable mass. Portal, superior mesenteric and splenic veins: Gallbladder and Biliary Tract: No radiodense calculus or dilation. Pancreas: Normal density, no abnormal calcifications or inflammatory process. Spleen: Normal. Adrenals: No masses seen. Kidneys: Normal size, contour and axis. No radiodense stones or obstructive uropathy. There are simpl e left renal cysts. The largest is in the inferior pole of the left kidney and measures 10.6 x 6.7 c m. No follow-up is recommended. Bowel: No obstruction or bowel wall thickening. There is diverticulosis of the colon without evidence of acute diverticulitis. There is a moderate amount of stool throughout the colon which may reflect constipation. There is no evidence of acute diverticulitis. Peritoneal Cavity: No ascites, collection or mesenteric inflammatory response. No free air. Lymph Nodes: Within normal limits. Bones: Within normal limits for the patient's age. Soft Tissues: Unremarkable. PELVIS: Bladder: Symmetric distention, no gross wall thickening. Reproductive Organs: Unremarkable as visualized. Lymph Nodes: Within normal limits. Bones: Within normal limits for the patient's age. IMPRESSION: 1. There is no evidence of thoracic aortic dissection. The ascending thoracic aorta measures 4.4 x 4 .2 cm. 2. No evidence of abdominal aortic aneurysm or dissection. 3. No acute pulmonary process. 4. No acute abdominal or pelvic process. RADIATION DOSE DELIVERED: 509mGy.cm Total DLP DATA REPOSITORY: All CT scans at this facility are submitted to the National Radiology Data Registry (NRDR) Dose Index Registry (DIR) with the [employer] (ACR). RADIATION OPTIMIZATION: All CT scans at this facility use at least one of these dose optimization te chniques: automated exposure control; mA and/or kV adjustment per patient size (includes targeted exa ms where dose is matched to clinical indication); or iterative reconstruction.
--- NOTE | 2024-02-29 14:20 | ED.GENADUL_ITS ---
Discharge Plan Disposition Patient Disposition: Home Condition: Stable Discharge Details Clinical Impression: Chest pain, Abdominal pain Primary Care Provider: Carolina Nelson ED Provider: Jose Soares Home Meds and New Rx's Prescriptions: Continued docusate sodium 100 mg capsule 100 mg PO BID Qty: 60 12RF polyethylene glycol 3350 [Miralax] 17 gram/dose powder 17 g PO HS PRN (Reason: constipation) Qty: 238 12RF atorvastatin 40 mg tablet 40 mg PO DAILY bisoprolol fumarate 5 mg tablet 5 mg PO DAILY donepezil 5 mg tablet 5 mg PO DAILY latanoprost 0.005 % drops 1 drp ophthalmic (eye) DAILY memantine 5 mg tablet 5 mg PO QAM omeprazole 10 mg capsule,delayed release(DR/EC) 10 mg PO DAILY timolol 0.25 % drops 1 drp ophthalmic (eye) BID calcitonin (salmon) 200 unit/actuation spray,non-aerosol 1 spray intranasal (ALT) DAILY alendronate 70 mg tablet 70 mg PO QWEEK sertraline 25 mg tablet 50 mg PO DAILY Calcium 600 with Vitamin D3 600 mg-10 mcg (400 unit) tablet,chewable 1 tab PO DAILY hydrocortisone 2.5 % cream with perineal applicator 1 applic WI QD-BID PRN mupirocin 2 % ointment 1 applic topical TID propranolol 10 mg tablet 20 mg PO TID timolol 0.5 % drops 1 drp ophthalmic (eye) BID lidocaine 5 % adhesive patch,medicated 1 patch TP DAILY PRN (Reason: pain) Qty: 15 0RF Rx Instructions: leave on most painful area for 12 hrs Discharge Instructions Additional Instructions: Her labs and imaging did not show any concerning findings. She did have 1 episode of what called SVT. This is a dsd-vkyq-hznoofyrurs arrhythmia. She can increase her propranolol to 20 mg 4 times a day She can also increase her sertraline if she still having anxiety to twice a day, I would also discuss this with her neurologist. She should also follow-up with her primary care provider If she feels more ill, has fevers or difficulty breathing, or persistent vomiting or worsening pain return to the emergency department for evaluation HPI General Mode of arrival: ambulatory . Date/Time Provider Initiated Documentation: 02/29/24 13:56 . Limitations to Documentation: no limitations . Information obtained by: patient . History of Present Illness 73 year old F presents to the emergency department with the chief complaint of Chest and abdominal pain, described as moderate, Quality is described as aching, and is localized to the chest and abdomen. Patient reports radiation to back. Patient started experiencing this day(s) (3) and it has been constant. No relieving factors improve symptom(s), No exacerbating factors reported . Patient notes no other symptoms.. Patient did receive the following treatments prior to arrival, none Related Data Home Medications ?Medication ?Instructions ?Recorded ?Confirmed atorvastatin 40 mg tablet 40 mg PO DAILY 06/30/23 02/29/24 bisoprolol fumarate 5 mg tablet 5 mg PO DAILY 06/30/23 02/29/24 donepezil 5 mg tablet 5 mg PO DAILY 06/30/23 02/29/24 latanoprost 0.005 % eye drops 1 drp ophthalmic (eye) DAILY 06/30/23 02/29/24 memantine 5 mg tablet 5 mg PO QAM 06/30/23 02/29/24 omeprazole 10 mg capsule,delayed 10 mg PO DAILY 06/30/23 02/29/24 release timolol 0.25 % eye drops 1 drp ophthalmic (eye) BID 06/30/23 02/29/24 lidocaine 5 % topical patch 1 patch topical DAILY PRN pain #15 07/04/23 02/29/24 ea calcitonin (salmon) 200 1 spray intranasal (ALT) DAILY 10/06/23 02/29/24 unit/actuation nasal spray alendronate 70 mg tablet 70 mg PO QWEEK 11/17/23 02/29/24 calcium 600 mg (as carbonate)-vit 1 tab PO DAILY 11/17/23 02/29/24 D3 10 mcg (400 unit) chewable tablet (Calcium 600 with Vitamin D3) hydrocortisone 2.5 % topical cream 1 applic WI QD-BID PRN 11/17/23 02/29/24 with perineal applicator mupirocin 2 % topical ointment 1 applic topical TID 11/17/23 02/29/24 propranolol 10 mg tablet 20 mg PO TID 11/17/23 02/29/24 sertraline 25 mg tablet 50 mg PO DAILY 11/17/23 02/29/24 timolol 0.5 % eye drops 1 drp ophthalmic (eye) BID 11/17/23 02/29/24 docusate sodium 100 mg capsule 100 mg PO BID #60 caps 12/31/23 02/29/24 polyethylene glycol 3350 17 17 g PO HS PRN constipation #238 12/31/23 02/29/24 gram/dose oral powder (Miralax) grams Previous Rx's ?Medication ?Instructions ?Recorded lidocaine 5 % topical patch 1 patch topical DAILY PRN pain #15 07/04/23 ea docusate sodium 100 mg capsule 100 mg PO BID #60 caps 12/31/23 polyethylene glycol 3350 17 17 g PO HS PRN constipation #238 12/31/23 gram/dose oral powder (Miralax) grams Allergies Allergy/AdvReac Type Severity Reaction Status Date / Time animal dander Allergy Unknown Unknown Verified 02/29/24 14:10 Penicillins Allergy Unknown unknown Verified 02/29/24 14:10 brimonidine Allergy unknown Verified 02/29/24 14:10 duloxetine Allergy unknown Verified 02/29/24 14:10 escitalopram (From Lexapro) Allergy unknown Verified 02/29/24 14:10 sucralfate (From Carafate) Allergy unknown Verified 02/29/24 14:10 General Stated Complaint: GenMedical MEGHANA: 3 Review of Systems All systems reviewed & are unremarkable except as noted in HPI and below Constitutional Constitutional: Denies chills, Denies fever(s) and Denies weakness Cardiovascular Cardiovascular: Reports chest pain and Denies dyspnea Respiratory Respiratory: Denies cough and Denies dyspnea Gastrointestinal Gastrointestinal: Reports abdominal pain, Denies nausea and Denies vomiting Genitourinary Genitourinary: Denies dysuria Neurologic Neurologic: Denies weakness Exam Const General: no acute distress Orientation: alert [facility] Head: normal to inspection Ears: external ears normal General nose exam: external nose normal Mouth: moist mucous membranes Eyes General: appearance normal, both eyes and all related structures Neck Neck: normal visual inspection Resp Effort & Inspection: normal respiratory effort and able to speak in complete sentences Auscultation: clear to auscultation bilaterally Cardio Jugular venous pressure: no JVD Rate: regular rate Heart Sounds: no murmurs GI Palpation: soft, not firm, no guarding and tender Skin General skin exam: no rashes or lesions noted Neuro General: patient alert and patient oriented x3 Extrem General: normal to inspection Psych Mental Status: mental status grossly normal Course Vital Signs Vital signs: Vital Signs Temperature 36.3 C L 02/29/24 14:01 Pulse 90 02/29/24 14:01 Respiratory Rate 14 02/29/24 14:01 Blood Pressure 143/77 H 02/29/24 14:01 Pulse Oximetry 96 02/29/24 14:01 Temperature 36.3 C L 02/29/24 14:11 Temperature Source Oral 02/29/24 14:11 Pulse 90 02/29/24 14:11 Respiratory Rate 14 02/29/24 14:11 Respiratory Effort Normal, Non-Labored 02/29/24 14:11 Blood Pressure 143/77 H 02/29/24 14:11 Blood Pressure Position Sitting 02/29/24 14:11 Pulse Oximetry 96 02/29/24 14:11 Oxygen Delivery Method Room Air 02/29/24 14:11 Oxygen Flow Rate 0 02/29/24 14:11 Pain Level 2 02/29/24 14:11 Medical Decision Making 73-year-old female who has a history of type 2 diabetes, prior stroke and now with memory problems per the comes in with 3 days of intermittent complaints of chest abdominal pain. Intermittently will radiate to the back. No vomiting, no fevers, no difficulty breathing. She is alert, limited history given her memory issues. She says that when she has the pain it is in her front of her chest and left upper abdomen. Her abdomen is soft and nondistended, she does have tenderness in the left upper quadrant. No guarding. Clear lung sounds. No JVD. Unclear etiology for symptoms but given complaints of chest and abdominal pain ambulating to the back will obtain CTA to to evaluate for dissection, and check a CBC CMP and troponins. Labs unremarkable, CT pending. Patient did have an episode where she went into what appeared to be SVT, unsure if she is ever had this before. She remained hemodynamically stable. She was given 10 mg of diltiazem which broke it and her heart rate went into the 90s in sinus rhythm. Will continue to monitor Patient remains in sinus rhythm, CTA shows no acute findings. Discussed with , he does seem overwhelmed for caring for her but is comfortable taking her home still. He does note that she has been feeling anxious recently and is only on 25 mg daily sertraline, advised that she can increase that to 50 if she needs. He will follow-up with her PCP and neurologist, return precautions given. Differential Diagnosis Differential Diagnosis: Musculoskeletal chest pain, dissection, NSTEMI Medical Records Medical records reviewed: Yes I reviewed the patient's medical records. Lab Data Lab results reviewed: Yes I reviewed the patient's lab results. ECG Data Attestation: I personally reviewed and interpreted this ECG (s) as follows: Prior ECG tracings: not available for review Interpretation: Sinus rhythm, rate of 79, left anterior fascicular block, no STEMI Second EKG as SVT is suspected, rate of 173, depressions as suspect is from rate related causes. Quality:SDOH Health Related Social Needs: No Data to Display PFSH All Active Problems (Updated 02/29/24 @ 17:21 by Jose Soares MD) Abdominal pain (Acute) Chest pain (Acute) Caregiver stress (Acute) Muscle wasting (Acute) Iliotibial band syndrome, right leg (Acute) Muscular deconditioning (Acute) Osteoarthritis of right knee (Acute) Most recent steroid injection: 11/26/2023 Type 2 diabetes mellitus (Acute) Rheumatoid arthritis (Chronic) Essential hypertension (Acute) Chronic pain (Chronic) Parkinsons (Chronic) Anxiety (Chronic) Thrombocytopenic disorder (Acute) Bradykinesia (Acute) Neuropathy (Acute) Alzheimer's dementia (Acute) Glaucoma (Chronic) Spinal stenosis (Acute) Carotid atherosclerosis (Acute) Multinodular goiter (Acute) Aortic valve regurgitation (Acute) Mitral valve regurgitation (Chronic) Medical History Constipation Hemorrhoids Head trauma (~2022) 01/2023 Enteropathogenic Escherichia coli infection Osteoporosis Hematochezia Lumbosacral radiculopathy Hypothyroid Barretts esophagus reportedly diagnosed 2015, repeat biopsies during EGD 2019 did not confirm this (per referral) Urinary incontinence Surgical History History of esophagogastroduodenoscopy (EGD) (~2019) 04/19/2019 H/O breast biopsy 2006 S/P thyroid biopsy 12/2022 Social History Smoking/Tobacco Use Status: Never Smoking risk assessment performed?: Yes Alcohol Intake: never Drug use: Never Substance use type: does not use Housing: house Do you feel safe at home: Yes Do you feel safe in your relationship?: Yes
[2024-02-29 14:46] LABS: Abs Immature Grans 0.01 10^3/uL (0.0-0.06); Absolute Basophil Count 0.05 10^3/uL (0.0-0.2); Absolute Eosinophil Count 0.64 10^3/uL (0.0-0.7); Absolute Lymphocyte Count 1.04 10^3/uL (1.2-3.4); Absolute Neutrophil Count 2.96 10^3/uL (1.2-6.7); Eosinophils % 12.3 %; HGB 11.5 g/dL (11.2-15.7); Immature Grans % 0.2 %; MCH 27.5 pg (27.0-33.0); MCHC 31.1 % (32.0-36.0); MCV 89 fL (80-95); MPV 10.5 fL (8.0-11.0); Monocytes % 9.6 %; Neutrophils % 56.9 %; Platelet Count 209 10^3/uL (130-400); RBC 4.18 10^6/uL (3.93-5.22); RDW 12.4 % (11.7-14.6); RDW-SD 39.9 fL
[2024-02-29 15:13] LABS: ALT 25 U/L (14-59); AST 21 U/L (15-37); Albumin 3.3 g/dL (3.4-5.0); Alkaline Phosphatase 119 U/L (46-116); Anion Gap 5.5 mmol/L (3-11); BUN 37 mg/dL (7-18); Bilirubin, Total 0.28 mg/dL (0.2-1.0); CO2 31.5 mmol/L (21.0-32.0); CREATININE 0.9 mg/dL (0.55-1.02); Calcium 9.2 mg/dL (8.5-10.1); Chloride 106 mmol/L (98-107); Estimated GFR 66.67 (mL/min/1.73m2); Glucose 115 mg/dL (74-106); Magnesium 2.1 mg/dL (1.8-2.4); Potassium 4.2 mmol/L (3.5-5.1); Sodium 143 mmol/L (136-145); TSH (W/Ref FT4) 0.75 uIU/mL (0.36-3.74); Total Protein 7.1 g/dL (6.4-8.2); Troponin I 5 ng/L (<or=51)
[2024-02-29 16:09] LABS: Troponin I 5 ng/L (<or=51)
[2024-02-29 16:12] LABS: Lipase 58 U/L (<78)
[2024-02-29] MEDS: Normal Saline - Diluent 50 ML VIAL IJ (16:18)
[2024-02-29] MEDS: Omnipaque 350 MG/ML 100 ML BTL 55 ML IJ (16:19)
--- NOTE | 2024-02-29 16:45 | RT.EKG_ITS ---
APPROVED REPORT Exam: Resting ECG Reason for Exam: tachycardia Patient Location: E HR:173 bpm ECG Measurements Heart Rate 173 AXIS ME [id number] P [id number] QRSd 87 QRS -56 QT 304 T 105 QTc 516 Conclusion Atrial fibrillation with rapid V-rate...A-rate 319 Left anterior fascicular block...axis(240,-40), init forces inf Probable LVH with secondary repol abnrm...multiple LVH criteria
[2024-02-29] MEDS: dilTIAZem 25 MG/5 ML VIAL 20 MG IVP (17:05)
== END 2024-02-29 17:36 | disposition home or self-care (01) ==
PROVIDERS: Emergency Provider Emergency Medicine; PCP Family Medicine
DX: R07.9 Chest pain, unspecified (principal); R10.9 Unspecified abdominal pain; E11.9 Type 2 diabetes mellitus without complications; I10 Essential (primary) hypertension; I48.91 Unspecified atrial fibrillation; Z86.73 Personal history of transient ischemic attack (TIA), and cerebral infarction without residual deficits; G30.9 Alzheimer's disease, unspecified; F02.80 Dementia in other diseases classified elsewhere, unspecified severity, without behavioral disturbance, psychotic disturbance, mood disturbance, and anxiety
CPT/HCPCS: 20610; 36415; 71275; 80053; 83690; 93005; 96374; 99214; 99285; J1010; 74174; 83735; 84443; 84484; 85025; 93010; J3490

== ENCOUNTER → 2024-05-30 10:41 | Outpatient (BNVA) | payer MEDICARE, SELFPAY | PROVIDERS: PCP Family Medicine; Referring Provider Family Medicine; Visit Provider Student in an Organized Health Care Education/Training Program | DX: M17.11 Unilateral primary osteoarthritis, right knee (principal) | CPT/HCPCS: 99214 ==

== ENCOUNTER 2024-06-10 16:21 | Outpatient (REF) | payer MEDICARE, SELFPAY ==
[2024-06-10 15:03] LABS: Abs Immature Grans 0.01 10^3/uL (0.0-0.06); Absolute Basophil Count 0.05 10^3/uL (0.0-0.2); Absolute Eosinophil Count 0.23 10^3/uL (0.0-0.7); Absolute Lymphocyte Count 1.15 10^3/uL (1.2-3.4); Absolute Neutrophil Count 2.38 10^3/uL (1.2-6.7); Basophils % 1.2 %; Eosinophils % 5.5 %; HCT 33.8 % (36.0-46.0); HGB 10.4 g/dL (11.2-15.7); Immature Grans % 0.2 %; Lymphocytes % 27.3 %; MCH 25.6 pg (27.0-33.0); MCHC 30.8 % (32.0-36.0); MCV 83 fL (80-95); MPV 11.8 fL (8.0-11.0); Monocytes % 9.5 %; Neutrophils % 56.3 %; Platelet Count 189 10^3/uL (130-400); RBC 4.07 10^6/uL (3.93-5.22); RDW 14.1 % (11.7-14.6); RDW-SD 42.7 fL; WBC 4.22 10^3/uL (4.4-10.8)
[2024-06-10 15:17] LABS: Iron 30 ug/dL (50-170); Total Iron Binding Capacity 459 ug/dL (250-450); Transferrin Sat 7 % (15-50)
[2024-06-10 15:44] LABS: Ferritin 13 ng/mL (8-252); Folate > 20.0 ng/mL (8.6-20.0); Vitamin B12 > 2000 pg/mL (193-986)
== END 2024-06-10 16:22 | disposition home or self-care (01) ==
LOC: NCHCN 16:21
PROVIDERS: PCP Family Medicine; Visit Provider Family Medicine
DX: D64.9 Anemia, unspecified (principal)
CPT/HCPCS: 82607; 82728; 82746; 83540; 83550; 85025

== ENCOUNTER 2024-08-15 22:06 | Outpatient (REF) | payer MEDICARE, SELFPAY ==
[2024-08-15 22:25] LABS: Abs Immature Grans 0.01 10^3/uL (0.0-0.06); Absolute Basophil Count 0.04 10^3/uL (0.0-0.2); Absolute Eosinophil Count 0.23 10^3/uL (0.0-0.7); Absolute Lymphocyte Count 1.21 10^3/uL (1.2-3.4); Absolute Monocyte Count 0.53 10^3/uL (0.1-0.8); Absolute Neutrophil Count 2.77 10^3/uL (1.2-6.7); Basophils % 0.8 %; Eosinophils % 4.8 %; HCT 34.3 % (36.0-46.0); HGB 10.4 g/dL (11.2-15.7); Immature Grans % 0.2 %; Lymphocytes % 25.3 %; MCH 24.1 pg (27.0-33.0); MCHC 30.3 % (32.0-36.0); MCV 80 fL (80-95); MPV 12.3 fL (8.0-11.0); Monocytes % 11.1 %; Neutrophils % 57.8 %; Platelet Count 164 10^3/uL (130-400); RBC 4.31 10^6/uL (3.93-5.22); RDW 16.1 % (11.7-14.6); WBC 4.79 10^3/uL (4.4-10.8)
[2024-08-15 22:39] LABS: Iron 29 ug/dL (50-170); Total Iron Binding Capacity 481 ug/dL (250-450); Transferrin Sat 6 % (15-50)
[2024-08-15 22:52] LABS: Ferritin 9 ng/mL (8-252)
== END 2024-08-15 22:07 | disposition home or self-care (01) ==
LOC: NCHCN 22:06
PROVIDERS: PCP Family Medicine; Visit Provider Family Medicine
DX: D64.9 Anemia, unspecified (principal)
CPT/HCPCS: 82728; 83540; 83550; 85025

== ENCOUNTER → 2024-10-20 08:03 | Outpatient (BNVA) | payer MEDICARE, SELFPAY | PROVIDERS: PCP Family Medicine; Referring Provider Family Medicine; Visit Provider Physician Assistant | DX: M17.11 Unilateral primary osteoarthritis, right knee (principal) | CPT/HCPCS: 20610; J1010 ==

== ENCOUNTER 2024-11-24 18:07 | Outpatient (REF) | payer MEDICARE, SELFPAY ==
[2024-11-24 17:23] LABS: Abs Immature Grans 0.01 10^3/uL (0.0-0.06); HCT 34.2 % (36.0-46.0); HGB 10.5 g/dL (11.2-15.7); Immature Grans % 0.2 %; MCH 25.3 pg (27.0-33.0); MCHC 30.7 % (32.0-36.0); MCV 82 fL (80-95); MPV 11.7 fL (8.0-11.0); Platelet Count 186 10^3/uL (130-400); RBC 4.15 10^6/uL (3.93-5.22); RDW 17.2 % (11.7-14.6); RDW-SD 52.2 fL; WBC 5.40 10^3/uL (4.4-10.8)
[2024-11-24 17:47] LABS: Iron 26 ug/dL (50-170); Total Iron Binding Capacity 513 ug/dL (250-450); Transferrin Sat 5 % (15-50)
[2024-11-24 17:51] LABS: Ferritin 10 ng/mL (8-252)
== END 2024-11-24 18:08 | disposition home or self-care (01) ==
LOC: NCHCN 18:07
PROVIDERS: PCP Family Medicine; Visit Provider Family Medicine
DX: D50.9 Iron deficiency anemia, unspecified (principal)
CPT/HCPCS: 82728; 83540; 83550; 85025

== ENCOUNTER 2025-03-07 14:23 | Outpatient (CLI) | payer MEDICARE, SELFPAY ==
[2025-03-07 13:56] LABS: Abs Immature Grans 0.03 10^3/uL (0.0-0.06); HCT 38.7 % (36.0-46.0); HGB 12.0 g/dL (11.2-15.7); Immature Grans % 0.6 %; MCH 27.1 pg (27.0-33.0); MCHC 31.0 % (32.0-36.0); MCV 88 fL (80-95); MPV 10.6 fL (8.0-11.0); Platelet Count 196 10^3/uL (130-400); RBC 4.42 10^6/uL (3.93-5.22); RDW 20.0 % (11.7-14.6); RDW-SD 63.6 fL; WBC 4.89 10^3/uL (4.4-10.8)
[2025-03-07 15:01] LABS: Ferritin 307 ng/mL (7-271)
== END 2025-03-07 14:24 | disposition home or self-care (01) ==
LOC: LBO 14:24
PROVIDERS: PCP Family Medicine; Visit Provider Internal Medicine Hematology & Oncology
DX: D50.0 Iron deficiency anemia secondary to blood loss (chronic) (principal)
CPT/HCPCS: 36415; 82728; 85025

== ENCOUNTER 2025-03-12 03:17 | Emergency (ER) | payer MEDICARE, SELFPAY ==
[2025-03-12] VITALS (94 sets, daily range): BP systolic 116–180; BP diastolic 51–85; PULSE 64–100; RESP 8–27; TEMP 36.9–37.2; O2SAT 87–99
--- NOTE | 2025-03-12 03:15 | DI.CT_ITS ---
Exam(s) CT HEAD CERVICAL SPINE WO EXAM: CT HEAD CERVICAL SPINE WO CLINICAL HISTORY: multiple falls, dementia. TECHNIQUE: Imaging Protocol: Axial computed tomography images with coronal and sagittal reformatted images were created and reviewed COMPARISON: No exams were available for comparison FINDINGS: Head CT Exam is mildly limited by motion. Ventricles and Extra axial spaces: Normal in size and morphology for the patient's age. Hemorrhage: None. Cerebral parenchyma: No evidence of mass or acute infarct. Mild atrophy. Moderate white matter changes of small vessel disease. Midline shift: None. Brainstem/Cerebellum: Normal. Calvarium: Normal. Visualized Paranasal sinuses/Mastoids: Clear. Soft tissues: Unremarkable. Cervical Spine CT BONES: Vertebral body heights are maintained. Levoscoliosis. There is no evidence of acute fracture. Advanced degenerative disc changes and facet degenerative changes are seen . SOFT TISSUES: No paraspinal hematoma. The airway appears intact. No pneumothorax is seen at the lung apices. There is heavy calcified plaque at the proximal right internal carotid artery causing moderate stenosis. There is plaque at the left common carotid bulb and proximal internal carotid artery causing mild stenosis. IMPRESSION: Head CT: No acute abnormality. C-spine CT: Degenerative changes, no acute abnormality. The preliminary [facility] report was reviewed. RADIATION DOSE DELIVERED: Total DLP DATA REPOSITORY: All CT scans at this facility are submitted to the National Radiology Data Registry (NRDR) Dose Index Registry (DIR) with the [employer] (ACR). RADIATION OPTIMIZATION: All CT scans at this facility use at least one of these dose optimization techniques: automated exposure control; mA and/or kV adjustment per patient size (includes targeted exams where dose is matched to clinical indication); or iterative reconstruction.
--- NOTE | 2025-03-12 03:29 | DI.CT_ITS ---
Exam(s) CT CHEST/ABD/PEL W CT THORACIC LUMBAR SPINE REC EXAM: CT CHEST/ABD/PEL W CLINICAL HISTORY: falls, dementia, left hip TTP, unable to walk. TECHNIQUE: Imaging Protocol: Axial computed tomography images with coronal and sagittal reformatted images were created and reviewed. Computer aided detection (CAD) was utilized. Axial, coronal and sagittal images of the thoracic and lumbar spine were reconstructed from the chest abdomen pelvic CT in bone and soft tissue algorithm. CONTRAST MATERIAL: Intravenous: Omnipaque 350 Contrast volume:75 ml Oral: no COMPARISON: CT CT THORAX ABD/PEL CTA from 02/29/[address] THORACIC LUMBAR SPINE REC from 03/12/2025 FINDINGS: CHEST: Pulmonary parenchyma: Bibasilar atelectasis. No consolidation. No dominant measurable mass. Tracheobronchial tree: No bronchiectasis. No mucous plugging.No bronchial wall thickening. Pleura: Small right pleural effusion. Trace left pleural effusion. No pneumothorax. Mediastinum: Large hiatal hernia. Pulmonary arteries: The pulmonary arteries are well opacified with IV contrast. No visible emboli. Cardiovascular: The heart is enlarged, particularly left ventricle. Coronary artery calcifications are present. No pericardial effusion. Ascending aorta measures 4.4 cm.. Bones: Vertebroplasty noted at T7 and T12. Scoliosis and degenerative changes are present in the thoracic spine.. No lytic or blastic lesions. Old fracture of the posterior right 11th rib. Soft tissues: Unremarkable. ABDOMEN and PELVIS: Liver: Normal density. No suspicious mass. Gallbladder and biliary tract: No evidence of stones or wall thickening. No biliary dilatation. Pancreas: Normal density, no abnormal calcifications or inflammatory process. Spleen: Normal. Kidneys: Normal size, contour and axis. No radiodense stones. No obstructive uropathy. Large left renal cyst. No follow-up recommended. No suspicious masses seen. Adrenal glands: No masses seen. Aorta: Abdominal portion non-dilated. Lymph nodes: Within normal limits. Soft tissues: Unremarkable. Bladder: Unremarkable. Bowel: No obstruction or bowel wall thickening. Prominent sigmoid diverticulosis. No evidence of diverticulitis. Increased quantity of stool. Peritoneal cavity: No ascites. No focal collection. No mesenteric inflammatory response. No free air. Bones: Acute subcapital fracture of the right femoral neck. Displacement superiorly of the femoral shaft. Old compression fracture of L1. No acute fractures. Degenerative changes and scoliosis. Reproductive organs: Unremarkable for age. IMPRESSION: No acute abnormality in the chest. There is a small right pleural effusion and trace left pleural effusion and adjacent atelectasis. Large hiatal hernia. Dilatation of the ascending aorta to 4.4 cm. No acute fractures. Vertebroplasty again noted at T12 and T7. Abdomen pelvis: Acute subcapital fracture of the right femur. Old L1 compression fracture. Degenerative changes and scoliosis. Diverticulosis. The preliminary [facility] report was reviewed. RADIATION DOSE DELIVERED: Total DLP DATA REPOSITORY: All CT scans at this facility are submitted to the National Radiology Data Registry (NRDR) Dose Index Registry (DIR) with the [employer] (ACR). RADIATION OPTIMIZATION: All CT scans at this facility use at least one of these dose optimization techniques: automated exposure control; mA and/or kV adjustment per patient size (includes targeted exams where dose is matched to clinical indication); or iterative reconstruction.
--- NOTE | 2025-03-12 03:30 | RT.EKG_ITS ---
APPROVED REPORT Exam: Resting ECG Reason for Exam: fall Patient Location: E HR:73 bpm ECG Measurements Heart Rate 73 AXIS DC 224 P 59 QRSd 92 QRS -42 QT 427 T 51 QTc 468 Conclusion Sinus rhythm...normal P axis, V-rate 60- 99 Atrial premature complex...SV complex w/ short R-R interval Prolonged DC interval...DC >220, V-rate 50- 90 Left axis deviation...QRS axis (-30,-90) Anteroseptal infarct, age indeterminate...Q >35mS, T neg, V1-V2 no ST segment or T wave abnormalities to suggest occlusive IA
[2025-03-12 03:53] LABS: Abs Immature Grans 0.05 10^3/uL (0.0-0.06); BE (Venous) 3 mmol/L (-2-3); HCO3 (Venous) 28 mmol/L (23-28); HCT 35.1 % (36.0-46.0); HGB 11.2 g/dL (11.2-15.7); Immature Grans % 0.5 %; MCH 27.2 pg (27.0-33.0); MCHC 31.9 % (32.0-36.0); MCV 85 fL (80-95); MPV 10.6 fL (8.0-11.0); O2 Sat (Venous) 56 %; Platelet Count 169 10^3/uL (130-400); RBC 4.12 10^6/uL (3.93-5.22); RDW 20.3 % (11.7-14.6); RDW-SD 62.7 fL; TCO2 (Venous) 26 mmol/L (24-29); WBC 10.70 10^3/uL (4.4-10.8); pCO2 (Venous) 43 mmHg (41-51); pO2 (Venous) 30 mmHg
--- NOTE | 2025-03-12 04:03 | W.ED.GENAD ---
Discharge Plan Disposition Patient Disposition: Transfer-Acute Inpatient Care Specific Acute Inpt Facility: [facility] Condition: Critical Discharge Details Clinical Impression: Closed femur fracture, Acute hypoxemic respiratory failure Primary Care Provider: Carolina Nelson ED Provider: Louann Calderon Home Meds and New Rx's Prescriptions: No Action polyethylene glycol 3350 [Miralax] 17 gram/dose powder 17 g PO HS PRN (Reason: constipation) Qty: 238 12RF atorvastatin 40 mg tablet 40 mg PO DAILY bisoprolol fumarate 5 mg tablet 5 mg PO DAILY donepezil 5 mg tablet 5 mg PO DAILY latanoprost 0.005 % drops 1 drp ophthalmic (eye) DAILY memantine 5 mg tablet 5 mg PO QAM omeprazole 10 mg capsule,delayed release(DR/EC) 10 mg PO DAILY timolol 0.25 % drops 1 drp ophthalmic (eye) BID calcitonin (salmon) 200 unit/actuation spray,non-aerosol 1 spray intranasal (ALT) DAILY alprazolam 0.5 mg tablet 0.5 mg PO ONCE PRN (Reason: Claustrophobia) Qty: 2 0RF Rx Instructions: Take 1 60 minutes prior to MRI. May take an additional 1 if still anxious 30 mins prior to MRI. alendronate 70 mg tablet 70 mg PO QWEEK sertraline 25 mg tablet 25 mg PO DAILY Calcium 600 with Vitamin D3 600 mg-10 mcg (400 unit) tablet,chewable 1 tab PO DAILY hydrocortisone 2.5 % cream with perineal applicator 1 applic ME QD-BID PRN mupirocin 2 % ointment 1 applic topical TID propranolol 10 mg tablet 20 mg PO TID timolol 0.5 % drops 1 drp ophthalmic (eye) BID gabapentin 100 mg capsule 100 mg PO TID PRN lidocaine 5 % adhesive patch,medicated 1 patch TP DAILY PRN (Reason: pain) Qty: 15 0RF Rx Instructions: leave on most painful area for 12 hrs mirtazapine 7.5 mg tablet 7.5 mg PO QHS Patient Comments: TAKE ONE TABLET BY MOUTH AT BEDTIME carbidopa-levodopa 25-100 mg tablet 1 tab PO TID Patient Comments: TAKE ONE TABLET BY MOUTH THREE TIMES A DAY donepezil 10 mg tablet 10 mg PO QHS Patient Comments: TAKE ONE TABLET BY MOUTH EVERY EVENING sertraline 50 mg tablet 50 mg PO DAILY Patient Comments: TAKE ONE TABLET BY MOUTH EVERY DAY docusate sodium 100 mg capsule 100 mg PO BID PRN HPI General Mode of arrival: ambulatory. Date/Time Provider Initiated Documentation: 03/12/25 03:28. Limitations to Documentation: altered mental status (dementia). Information obtained by: family and EMS. HPI Narrative: 74yo F with dementia, T2DM, HTN, Parkinson's, presenting for hip pain and inability to ambulate. Fell yesterday morning; initially walking after that but then with several more falls throughout the day. now unable to transfer her to and from toilet as she is unable to bear weight. Aside from being in pain when she moves her legs or tries to walk, she otherwise seems to be acting like her usual self. Was normal yesterday. Per family, no fevers, chills, rash, vomiting, difficulty breathing, or other concerns. No history able to be obtained from patient. Related Data Home Medications ?Medication ?Instructions ?Recorded ?Confirmed atorvastatin 40 mg tablet 40 mg PO DAILY 06/30/23 03/12/25 bisoprolol fumarate 5 mg tablet 5 mg PO DAILY 06/30/23 03/12/25 Held on 03/12/25. Instructions: Pt Stopped/Never Started donepezil 5 mg tablet 5 mg PO DAILY 06/30/23 03/12/25 Held on 03/12/25. Instructions: Duplicate latanoprost 0.005 % eye drops 1 drp ophthalmic (eye) DAILY 06/30/23 03/12/25 memantine 5 mg tablet 5 mg PO QAM 06/30/23 03/12/25 omeprazole 10 mg capsule,delayed 10 mg PO DAILY 06/30/23 03/12/25 release timolol 0.25 % eye drops 1 drp ophthalmic (eye) BID 06/30/23 03/12/25 lidocaine 5 % topical patch 1 patch topical DAILY PRN pain #15 07/04/23 03/12/25 ea calcitonin (salmon) 200 1 spray intranasal (ALT) DAILY 10/06/23 03/12/25 unit/actuation nasal spray Held on 03/12/25. Instructions: Prescription Finished alendronate 70 mg tablet 70 mg PO QWEEK 11/17/23 03/12/25 Held on 03/12/25. Instructions: Changed by Provider calcium 600 mg (as carbonate)-vit 1 tab PO DAILY 11/17/23 03/12/25 D3 10 mcg (400 unit) chewable tablet (Calcium 600 with Vitamin D3) hydrocortisone 2.5 % topical cream 1 applic ME QD-BID PRN 11/17/23 03/12/25 with perineal applicator Held on 03/12/25. Instructions: Prescription Finished mupirocin 2 % topical ointment 1 applic topical TID 11/17/23 03/12/25 Held on 03/12/25. Instructions: Prescription Finished propranolol 10 mg tablet 20 mg PO TID 11/17/23 03/12/25 sertraline 25 mg tablet 25 mg PO DAILY 11/17/23 03/12/25 Held on 03/12/25. Instructions: Changed by Provider timolol 0.5 % eye drops 1 drp ophthalmic (eye) BID 11/17/23 03/12/25 Held on 03/12/25. Instructions: Duplicate polyethylene glycol 3350 17 17 g PO HS PRN constipation #238 12/31/23 03/12/25 gram/dose oral powder (Miralax) grams gabapentin 100 mg capsule 100 mg PO TID PRN 03/29/24 03/12/25 alprazolam 0.5 mg tablet 0.5 mg PO ONCE PRN Claustrophobia 05/31/24 03/12/25 #2 tabs carbidopa 25 mg-levodopa 100 mg 1 tab PO TID 03/12/25 03/12/25 tablet docusate sodium 100 mg capsule 100 mg PO BID PRN 03/12/25 03/12/25 donepezil 10 mg tablet 10 mg PO QHS 03/12/25 03/12/25 mirtazapine 7.5 mg tablet 7.5 mg PO QHS 03/12/25 03/12/25 sertraline 50 mg tablet 50 mg PO DAILY 03/12/25 03/12/25 Previous Rx's ?Medication ?Instructions ?Recorded lidocaine 5 % topical patch 1 patch topical DAILY PRN pain #15 07/04/23 ea polyethylene glycol 3350 17 17 g PO HS PRN constipation #238 12/31/23 gram/dose oral powder (Miralax) grams alprazolam 0.5 mg tablet 0.5 mg PO ONCE PRN Claustrophobia 05/31/24 #2 tabs Allergies Allergy/AdvReac Type Severity Reaction Status Date / Time animal dander Allergy Unknown Unknown Verified 03/12/25 03:35 mirabegron (From Myrbetriq) Allergy Unknown Unknown Unverified 03/12/25 03:35 Penicillins Allergy Unknown unknown Verified 03/12/25 03:35 brimonidine Allergy unknown Verified 03/12/25 03:35 duloxetine Allergy unknown Verified 03/12/25 03:35 escitalopram (From Lexapro) Allergy unknown Verified 03/12/25 03:35 sucralfate (From Carafate) Allergy unknown Verified 03/12/25 03:35 General Stated Complaint: Fall/Non TraumaCriteria MEGHA[place]: 3 Review of Systems Unobtainable due to mental condition (alzheimers) Exam Narrative Exam Narrative: GENERAL: Alert, pain with movement of BLE. SKIN: Warm and well perfused. No rashes, bruises, discolorations or abrasions. HEAD: Atraumatic, normocephalic without edema, discoloration or evidence of trauma. Facial bones without deformities or tenderness. EYES: PERRL. No scleral icterus or conjunctival injection. Extraocular muscles intact without nystagmus or diplopia. NOSE: No discharge, tenderness, laxity. No nasal septal hematoma. MOUTH: No malocclusion or trismus. Moist mucus membranes without blood. NECK: Trachea midline. No discolorations or edema. CV: Regular rate and rhythm, Normal s1 and s2. No murmurs, rubs, or gallops. PV: Radial pulses 2+ bilaterally and symmetric. Dorsalis pedis pulses 2+ bilaterally and symmetric. 2+ capillary refill. No extremity edema. CHEST: No abrasions or ecchymosis. Chest symmetric with respirations. No chest wall tenderness. No crepitus. No step offs. Lungs are clear to auscultation bilaterally. ABDOMEN: No ecchymosis or abrasions. Soft, nondistended, nontender. BACK: No abrasions, skin openings, or ecchymosis. Spine without bony tenderness, no step offs. PELVIC: Pelvis stable, TT to lateral compression and palpation of left hip. : Normal external genitalia. No ecchymosis or edema. MSK: Bilateral hips held in flexion ~45 degrees. No gross deformities or discolorations or lesions. Compartments soft. Pain with ranging of bilateral hips; otherwise tolerates range of motion of extremities without tenderness. NEURO: GCS 14 (E4 V4 M6). PERRL. EOMI. Sensation intact to noxious stimuli all 4 extremities. Unable to follow commands reliably enough for full strength testing; does move all 4 extremities spontaenously against gravity. Course Vital Signs Vital signs: Vital Signs Temperature 37.2 C 03/12/25 03:26 Pulse 82 03/12/25 03:26 Respiratory Rate 22 03/12/25 03:26 Blood Pressure 142/85 H 03/12/25 03:26 Pulse Oximetry 87 L 03/12/25 03:26 Temperature 37.2 C 03/12/25 03:26 Temperature Source Temporal Artery Scan 03/12/25 03:26 Pulse 82 03/12/25 03:26 Respiratory Rate 22 03/12/25 03:26 Blood Pressure 142/85 H 03/12/25 03:26 Blood Pressure Position Sitting 03/12/25 03:26 Pulse Oximetry 87 L 03/12/25 03:26 Oxygen Delivery Method Room Air 03/12/25 03:26 Oxygen Flow Rate 0 03/12/25 03:26 Comment 2lpm via NC applied 03/12/25 03:26 Lab/Test Results Lab/Test Results: Laboratory Tests Range/Units 03/12/25 03:47 VBG pH (7.31-7.41) 7.42 H VBG pCO2 (41-51) mmHg 43 VBG pO2 mmHg 30 VBG HCO3 (23-28) mmol/L 28 VBG Total CO2 (24-29) mmol/L 26 VBG O2 Saturation % 56 VBG Base Excess (-2-3) mmol/L 3 VBG Lactate (<or=2.0) mmol/L 2.1 Medical Decision Making 74yo F with dementia, T2DM, HTN, Parkinson's, presenting for hip pain and inability to ambulate. Fell yesterday morning; initially walking after that but then with several more falls throughout the day. now unable to transfer her to and from toilet as she is unable to bear weight. Aside from being in pain when she moves her legs or tries to walk, she otherwise seems to be acting like her usual self. Hypoxic on arrival to high 80's, sat 95+% on 2L NC. Vital signs otherwise reassuring. Lungs CTAB. Left hip TTP on exam and pain with ROM at bilateral hips, otherwise no significant traumatic findings. Neurovascular intact BLE. -EKG SR, 1st degree heart block, no ST segment or T wave abnormalities to suggest occlusive MO. -Labs reviewed as below, CBC reassuring with no leukocytosis or anemia, CMP with no actionable abnormalities, Mg normal, VBG reassuring with no acidosis (slightly elevated lactate at 2.1- will give small IVFB and reassess), initial troponin elevated at 87 concerning for NSTEMI, suspect T2. Will trend and evaluate provoking factors/underlying cause; would not start on AC at this time with trauma scan pending -CTs independently reviewed: CT head & c-spine: No ICH or displaced fractures on my view, radiology read with no acute findings. CT chest: no pneumothorax on my view, radiology read wtih bibasilar atelectasis and small bilateral pleural effusions CT abd/pelvis: right femoral fracture on my view, radiology read wtih acute right subcapital femoral fracture. One hour troponin slightly uptrending to 97; will continue to treat as [id number] CT and physical exam not suggestive of fat embolism though must consider given hypoxia; supportive care. Lower suspicion for pneumonia but out of caution will treat. Pt with penicillin allergy, unknown reaction, does not know reaction; chart review unrevealing in terms of prior anbitiotic treatment. Given this will avoid pxn and cephalasporins and treat with aztreonam. Discussed with [facility] [place]; accepted ED to ED under Dr. Holley as trauma alert. Transferred via [place] with medic. Lab Data Lab results reviewed: Yes I reviewed the patient's lab results. Labs: Laboratory Tests Range/Units 03/12/25 03/12/25 03:47 04:50 WBC (4.4-10.8) 10^3/uL 10.70 RBC (3.93-5.22) 10^6/uL 4.12 Hgb (11.2-15.7) g/dL 11.2 Hct (36.0-46.0) % 35.1 L MCV (80-95) fL 85 MCH (27.0-33.0) pg 27.2 MCHC (32.0-36.0) % 31.9 L RDW (11.7-14.6) % 20.3 H Plt Count (130-400) 10^3/uL 169 MPV (8.0-11.0) fL 10.6 Immature Gran % % 0.5 Neutrophils % % 82.5 Lymphocytes % % 7.7 Monocytes % % 7.0 Eosinophils % % 2.1 Basophils % % 0.2 Nucleated RBC % (0.0-0.3) % 0.0 Absolute Neutrophils (1.2-6.7) 10^3/uL 8.83 H Absolute Lymphocytes (1.2-3.4) 10^3/uL 0.82 L Absolute Monocytes (0.1-0.8) 10^3/uL 0.75 Absolute Eosinophils (0.0-0.7) 10^3/uL 0.23 Absolute Basophils (0.0-0.2) 10^3/uL 0.02 Anisocytosis 1+ VBG pH (7.31-7.41) 7.42 H VBG pCO2 (41-51) mmHg 43 VBG pO2 mmHg 30 VBG HCO3 (23-28) mmol/L 28 VBG Total CO2 (24-29) mmol/L 26 VBG O2 Saturation % 56 VBG Base Excess (-2-3) mmol/L 3 VBG Lactate (<or=2.0) mmol/L 2.1 Sodium (136-145) mmol/L 140 Potassium (3.5-5.1) mmol/L 4.1 Chloride (98-107) mmol/L 106 Carbon Dioxide (20.0-31.0) mmol/L 25.6 Anion Gap (3-11) mmol/L 8.4 BUN (9-23) mg/dL 37 H Creatinine (0.55-1.02) mg/dL 0.93 Est GFR (CKD-EPI 2020) (mL/min/1.73m2) 58.50 Glucose (74-106) mg/dL 172 H Calcium (8.3-10.6) mg/dL 8.4 Magnesium (1.6-2.6) mg/dL 2.2 Total Bilirubin (0.2-1.2) mg/dL 0.5 AST (<34) U/L 25 ALT (10-49) U/L 14 Alkaline Phosphatase (46-116) U/L 86 Troponin I (<35) ng/L 87 H* 97 H* Total Protein (5.7-8.2) g/dL 6.4 Albumin (3.2-5.0) g/dL 3.9 Quality:SDOH Health Related Social Needs: Health related social needs house/econ circumstance daily activities lonely/isolated Health related social needs details is primary caregiver, reports some issues w/ help caring for Critical Care Time Critical Care Time Total Critical Care Time: 48 Attestation: Due to a high probability of clinically significant, life threatening deterioration, the patient required my highest level of preparedness to intervene emergently and I personally spent this critical care time directly and personally managing the patient. This critical care time included obtaining a history; examining the patient; pulse oximetry; ordering and review of studies; arranging urgent treatment with development of a management plan; evaluation of patient's response to treatment; frequent reassessment; and, discussions with other providers. This critical care time was performed to assess and manage the high probability of imminent, life-threatening deterioration that could result in multi-organ failure. It was exclusive of separately billable procedures and treating other patients PFSH All Active Problems (Updated 03/12/25 @ 05:53 by Louann Calderon MD) Acute hypoxemic respiratory failure (Acute) Closed femur fracture (Acute) Knee osteoarthritis (Acute) Caregiver stress (Acute) Muscle wasting (Acute) Iliotibial band syndrome, right leg (Acute) Muscular deconditioning (Acute) Osteoarthritis of right knee (Acute) Most recent steroid injection: 10/20/2024; 02/29/2024; 11/26/2023 Type 2 diabetes mellitus (Acute) Rheumatoid arthritis (Chronic) Essential hypertension (Acute) Chronic pain (Chronic) Parkinsons (Chronic) Anxiety (Chronic) Thrombocytopenic disorder (Acute) Bradykinesia (Acute) Neuropathy (Acute) Alzheimer's dementia (Acute) Glaucoma (Chronic) Spinal stenosis (Acute) Carotid atherosclerosis (Acute) Multinodular goiter (Acute) Aortic valve regurgitation (Acute) Mitral valve regurgitation (Chronic) Medical History Cyst of left kidney Lactose intolerance Moderate mitral valve regurgitation Moderate aortic valve regurgitation Lichen sclerosus Arteriosclerosis of carotid artery Bunion Pain in right knee Wound of skin Compression fracture of vertebral column Dysphagia Tremor Kyphoscoliosis Low back pain GERD (gastroesophageal reflux disease) Dilation of aorta Atherosclerosis Cerebrovascular disease Hypertensive heart disease without CHF Impacted cerumen Cataract Major depression Anemia Mixed hyperlipidemia Abnormal weight loss Constipation Hemorrhoids Head trauma (~2022) 01/2023 Enteropathogenic Escherichia coli infection Osteoporosis Hematochezia Lumbosacral radiculopathy Hypothyroid Barretts esophagus reportedly diagnosed 2015, repeat biopsies during EGD 2019 did not confirm this (per referral) Urinary incontinence Surgical History H/O wisdom tooth extraction History of esophagogastroduodenoscopy (EGD) (~2019) 04/19/2019 H/O breast biopsy 2006 S/P thyroid biopsy 12/2022 Family History Father Melanoma Lymphoma Mother Dementia Malignant neoplasm of uterus Glaucoma Paternal Aunt Breast cancer Sister Glaucoma Social History Smoking/Tobacco Use Status: Never Smoking risk assessment performed?: Yes Alcohol Intake: never Drug use: Never Substance use type: does not use Housing: house Do you feel safe at home: Yes Do you feel safe in your relationship?: Yes
[2025-03-12 04:04] LABS: Anisocytosis 1+
[2025-03-12] MEDS: Normal Saline Flush 10 ML SYR IVP (04:09)
[2025-03-12] MEDS: Omnipaque 350 MG/ML 100 ML BTL IJ (04:09)
[2025-03-12] MEDS: Normal Saline - Diluent 50 ML VIAL IJ (04:09)
[2025-03-12 04:11] LABS: Magnesium 2.2 mg/dL (1.6-2.6)
[2025-03-12 04:13] LABS: ALT 14 U/L (10-49); AST 25 U/L (<34); Albumin 3.9 g/dL (3.2-5.0); Alkaline Phosphatase 86 U/L (46-116); Anion Gap 8.4 mmol/L (3-11); BUN 37 mg/dL (9-23); Bilirubin, Total 0.5 mg/dL (0.2-1.2); CO2 25.6 mmol/L (20.0-31.0); Calcium 8.4 mg/dL (8.3-10.6); Chloride 106 mmol/L (98-107); Glucose 172 mg/dL (74-106); Potassium 4.1 mmol/L (3.5-5.1); Sodium 140 mmol/L (136-145); Total Protein 6.4 g/dL (5.7-8.2)
[2025-03-12 04:37] LABS: Troponin I 87 ng/L (<35)
--- NOTE | 2025-03-12 04:46 | DI.VRAD_ITS ---
PROCEDURE INFORMATION: Exam: CT Head Without Contrast Exam date and time: 03/12/2025 4:06 AM Age: 74 years old Clinical indication: Altered mental status/memory loss; Additional info: Multiple falls, dementia TECHNIQUE: Imaging protocol: Computed tomography of the head without contrast. COMPARISON: No relevant prior studies available. FINDINGS: Brain: There is no evidence of acute brain infarct, mass, shift of midline or parenchymal hemorrhage. Patchy periventricular white matter low attenuation present, a nonspecific finding but likely related to chronic small vessel ischemic change. Cerebral ventricles: Moderate dilatation of the ventricular system and sulci diffusely, compatible with volume loss. Paranasal sinuses: Visualized sinuses are unremarkable. No fluid levels. Mastoid air cells: Visualized mastoid air cells are well aerated. Bones: Unremarkable. No acute fracture. Soft tissues: Unremarkable. Vasculature: Diffuse atherosclerotic disease IMPRESSION: No acute intracranial hemorrhage PROCEDURE INFORMATION: Exam: CT Cervical Spine Without Contrast Exam date and time: 03/12/2025 4:06 AM Age: 74 years old Clinical indication: Altered mental status/memory loss; Additional info: Multiple falls, dementia TECHNIQUE: Imaging protocol: Computed tomography of the cervical spine without contrast. COMPARISON: MRI THORACIC SPINE WO CONTRAST (GENERIC) 07/25/2024 3:42 PM FINDINGS: Bones: Multilevel degenerative disc disease. No evidence of fracture Lungs: Lung apices are normal. Soft tissues: Unremarkable. IMPRESSION: No evidence of acute fracture. Dictated and Authenticated by: Kathy Pisano MD. Orderin Kvng Lew MD
--- NOTE | 2025-03-12 04:53 | DI.VRAD_ITS ---
Addendum created by Kathy Pisano MD on 03/12/2025 4:55:40 AM EST: THIS REPORT CONTAINS FINDINGS THAT MAY BE CRITICAL TO PATIENT CARE. The findings were verbally communicated by me to BENJAMIN BHARDWAJ via telephone conference at 4:55 AM EST on 03/12/2025. The findings were acknowledged and understood. Initial report created on 03/12/2025 4:52:36 AM EST: PROCEDURE INFORMATION: Exam: CT Chest With Contrast; Diagnostic Exam date and time: 03/12/2025 4:18 AM Age: 74 years old Clinical indication: Pain; Other: Left hip ttp, unable to walk; Additional info: Falls, dementia, left hip ttp, unable to walk TECHNIQUE: Imaging protocol: Diagnostic computed tomography of the chest with contrast. Contrast material: OMNI 350; Contrast volume: 75 ml; Contrast route: INTRAVENOUS (IV); COMPARISON: CT THORAX ABD/PEL CTA 02/29/2024 3:57 PM FINDINGS: Lungs: Small bibasilar atelectasis or early consolidation Pleural spaces: Small right pleural effusions. Scant left pleural effusion. Heart: Left ventricular enlargement Lymph nodes: Unremarkable. No enlarged lymph nodes. Vasculature: Fusiform aneurysmal dilatation of the ascending thoracic aorta to 4.4 cm Diaphragm: Large hiatal hernia Bones/joints: T7 and T12 vertebroplasties. Dextroscoliosis Soft tissues: Unremarkable. IMPRESSION: Bibasilar atelectasis and small bilateral pleural effusions PROCEDURE INFORMATION: Exam: CT Abdomen And Pelvis With Contrast Exam date and time: 03/12/2025 4:18 AM Age: 74 years old Clinical indication: Pain; Other: Left hip ttp, unable to walk; Additional info: Falls, dementia, left hip ttp, unable to walk TECHNIQUE: Imaging protocol: Computed tomography of the abdomen and pelvis with contrast. Contrast material: OMNI 350; Contrast volume: 75 ml; Contrast route: INTRAVENOUS (IV); COMPARISON: CT THORAX ABD/PEL CTA 02/29/2024 3:57 PM FINDINGS: Lungs: See above Liver: Unremarkable. No mass. Gallbladder and biliary ducts: Unremarkable. No calcified stones. No ductal dilation. Pancreas: Unremarkable. No ductal dilation. Spleen: Unremarkable. No splenomegaly. Adrenal glands: Normal. No mass. Kidneys and ureters: Large exophytic left renal cyst Stomach and bowel: Large stool load suggesting constipation Appendix: No evidence of appendicitis. Intraperitoneal space: Unremarkable. No free air. No significant fluid collection. Vasculature: Unremarkable. No abdominal aortic aneurysm. Lymph nodes: Unremarkable. No enlarged lymph nodes. Urinary bladder: Unremarkable as visualized. Reproductive: Unremarkable as visualized. Bones/joints: Severe multilevel degenerative disc disease is present. Acute right subcapital femoral fracture Soft tissues: Unremarkable. IMPRESSION: Acute right subcapital femoral fracture Dictated and Authenticated by: Kathy Pisano MD. Orderin Kvng Lew MD
--- NOTE | 2025-03-12 04:59 | DI.VRAD_ITS ---
PROCEDURE INFORMATION: Exam: CT Thoracic Spine Without Contrast Exam date and time: 03/12/2025 4:18 AM Age: 74 years old Clinical indication: Injury or trauma; Blunt trauma (contusions or hematomas); Injury details: Falls, dementia, left hip ttp, unable to walk TECHNIQUE: Imaging protocol: Computed tomography of the thoracic spine without contrast. COMPARISON: MRI THORACIC SPINE WO CONTRAST (GENERIC) 07/25/2024 3:42 PM FINDINGS: Bones/joints: T7 and T12 vertebroplasties. No acute fracture Soft tissues: Unremarkable. IMPRESSION: No evidence of acute fracture. PROCEDURE INFORMATION: Exam: CT Lumbar Spine Without Contrast Exam date and time: 03/12/2025 4:18 AM Age: 74 years old Clinical indication: Injury or trauma; Blunt trauma (contusions or hematomas); Injury details: Falls, dementia, left hip ttp, unable to walk TECHNIQUE: Imaging protocol: Computed tomography of the lumbar spine without contrast. COMPARISON: MRI LUMBAR SPINE WO CONTRAST (GENERIC) 07/25/2024 3:42 PM FINDINGS: Bones/joints: Severe multilevel degenerative disc disease. S shaped scoliosis. No acute fracture Soft tissues: Unremarkable. IMPRESSION: No evidence of acute fracture. Dictated and Authenticated by: Kathy Pisano MD. Orderin Kvng Lew MD
[2025-03-12] MEDS: MORPHine 10 MG/ML VIAL 2 MG IVP (05:25)
[2025-03-12] MEDS: Ketorolac 15 MG/ML VIAL IVP (05:25)
[2025-03-12 05:28] LABS: Troponin I 97 ng/L (<35)
[2025-03-12] MEDS: Normal Saline 500 ML 1000 ML IV (06:10)
[2025-03-12] MEDS: AZITHROMYCIN 500 MG in Normal Saline 250 ML 250 MG IVPB (06:10)
== END 2025-03-12 06:36 | disposition short-term general hospital (02) ==
LOC: ER 06:02
PROVIDERS: Emergency Provider Student in an Organized Health Care Education/Training Program; PCP Family Medicine
DX: S72.011A Unspecified intracapsular fracture of right femur, initial encounter for closed fracture (principal); W19.XXXA Unspecified fall, initial encounter; J96.01 Acute respiratory failure with hypoxia
CPT/HCPCS: 36415; 74177; 80053; 82805; 93005; 96365; 96375; 99291; 70450; 71260; 72125; 83605; 83735; 84484; 85025; 93010; J0456; J1885; J2270; J3490